=== PATIENT | male | born 1965 | race Two or more races ===

== ENCOUNTER 2024-05-22 14:08 | Inpatient (IN) | payer MEDICAID ==
[~2024-05-22] VITALS: Ht 162.6 cm; Wt 64.0 kg
[2024-05-22 14:08] VITALS: PULSE 132; RESP 17; O2SAT 100
[2024-05-22 14:13] VITALS: O2SAT 98
[2024-05-22] MEDS ORDERED: ACETAMINOPHEN 325MG TABLET PO ONE (14:30)
[2024-05-22] MEDS ORDERED: ACETAMINOPHEN 325MG SUPP PR ONE (14:30)
[2024-05-22 14:42] LABS: HEMATOCRIT. 37.1 % (42.0-52.0); HEMOGLOBIN. 11.7 g/dL (14.0-18.0); MEAN CORPUSCULAR HGB CONC 31.5 g/dL (31.0-37.0); MEAN CORPUSCULAR VOLUME 85.9 fL (80.0-94.0); MEAN PLATELET VOLUME 8.4 fl (7.4-10.4); PLATELET 583 x1000/uL (130-400); RED BLOOD CELL COUNT 4.32 mill/uL (4.7-6.1); RED CELL DISTRIBUTION WIDTH 14.8 % (11.6-14.6); WHITE BLOOD COUNT 12.6 x1000/uL (4.5-11.0)
[2024-05-22] MEDS: ACETAMINOPHEN 650MG SUPP PR NR (14:42)
[2024-05-22] MEDS: VANCOMYCIN 1G PREMIX 200 ML IV ONE (14:43)
[2024-05-22] MEDS: SODIUM CHLORIDE 0.9% 1,000 ML IV ONE ×2 (14:43→16:06)
[2024-05-22 14:45] LABS: DIFFERENTIAL COMMENT 1
[2024-05-22 14:50] LABS: CHLORIDE 101 mEq/L (98-107); POTASSIUM 5.1 mEq/L (3.5-5.1); SODIUM 140 mEq/L (136-145)
[2024-05-22 14:51] LABS: CALCIUM 9.9 mg/dL (8.7-10.4); CARBON DIOXIDE 32 mEq/L (21-32)
[2024-05-22] MEDS: PIPERACILLIN/TAZO 3.375G/50ML 50 ML IV ONE (14:53)
[2024-05-22 14:56] LABS: CREATININE 0.7 mg/dL (0.6-1.3); GLUCOSE 254 mg/dL (70-105); UREA NITROGEN BLOOD 39 mg/dL (9-23)
[2024-05-22 15:28] LABS: PLATELET ESTIMATE INCREASED
[2024-05-22 15:31] LABS: LACTIC ACID 3.8 mmol/L (0.4-2.0)
[2024-05-22 15:48] LABS: CLARITY URINE CLEAR (CLEAR); COLOR URINE DARK YELLOW (YELLOW); GLUCOSE URINE NEGATIVE (NEGATIVE); KETONES URINE TRACE (NEGATIVE); LEUKOCYTE ESTERASE URINE NEGATIVE (NEGATIVE); NITRITE URINE NEGATIVE (NEGATIVE); OCCULT BLOOD URINE NEGATIVE (NEGATIVE); PROTEIN URINE 1+ (NEGATIVE); SPECIFIC GRAVITY URINE 1.035 (1.005-1.030)
[2024-05-22 16:04] LABS: BACTERIA URINE 1+; RBC URINE NONE SEEN /hpf (0-2); SQUAMOUS EPITHELIAL CELL URINE RARE /lpf (RARE/1+); WBC URINE 0-2 /hpf (0-2)
[2024-05-22 16:28] LABS: PROTHROMBIN TIME 11.3 sec (9.6-11.0)
[2024-05-22 17:53] VITALS: PULSE 93; RESP 14; O2SAT 100
[2024-05-22 19:45] VITALS: PULSE 98; RESP 15; O2SAT 99
[2024-05-22] MEDS: NOREPINEPHRINE 8MG/250ML PMX 250 ML IV ONE (20:12)
[2024-05-23] VITALS (63 sets, daily range): BP systolic 91–122; BP diastolic 47–81; PULSE 79–107; RESP 12–21; TEMP 36.83628–38.0304; O2SAT 97–100
[2024-05-23] MEDS: IOHEXOL-300 100 ML BOTTLE ONE (00:31)
[2024-05-23] MEDS ORDERED: NOREPINEPHRINE 8MG/250ML PMX 250 ML IV ONE (03:00)
[2024-05-23 03:05] LABS: BG BASE EXCESS 4.8 mmol/L (-2.0-2.0); BG CARBOXYHEMOGLOBIN 0.4 % (0.5-1.5); BG FRACTION INSPIRED OXYGEN 40; BG METHEMOGLOBIN 0.2 % (0.0-1.5); BG OXYHEMOGLOBIN 98.4 % (94.0-97.0); BG PCO2 35.6 mmHg (35.0-45.0); BG PH 7.514 (7.350-7.450); BG PO2 144.6 mmHg (75.0-100.0); BG SAMPLE SITE RIGHT RADIAL; BG TOTAL HEMOGLOBIN 8.2 g/dL (12.0-18.0); BG VENT MODE VENT - AC
[2024-05-23] MEDS ORDERED: LEVETIRACETAM (05:41)
[2024-05-23] MEDS ORDERED: CLON0.1T PO (05:41)
[2024-05-23] MEDS ORDERED: AMLO10TA80 PO (05:41)
[2024-05-23] MEDS ORDERED: HYDR-2988 PO (05:41)
[2024-05-23] MEDS ORDERED: BUDE0.5A3 NEB (05:41)
[2024-05-23] MEDS ORDERED: KETO15CR2 TP (05:41)
[2024-05-23] MEDS ORDERED: ALBU2.5V13 NEB (05:41)
[2024-05-23] MEDS ORDERED: CHLO473M11 (05:41)
[2024-05-23] MEDS ORDERED: METO25TA6 PO (05:41)
[2024-05-23] MEDS: NOREPINEPHRINE 8MG/250ML PMX 250 ML IV PRN (05:43)
[2024-05-23 07:05] LABS: HEMATOCRIT 23.5 % (42.0-52.0); HEMOGLOBIN 7.5 g/dL (14.0-18.0); MEAN CORPUSCULAR HEMOGLOBIN 27.1 pg (28.0-32.0); MEAN CORPUSCULAR VOLUME 84.7 fL (80.0-94.0); PLATELET 585 x1000/uL (130-400); RED BLOOD CELL COUNT 2.77 mill/uL (4.7-6.1); RED CELL DISTRIBUTION WIDTH 14.7 % (11.6-14.6); WHITE BLOOD COUNT 7.8 x1000/uL (4.5-11.0)
[2024-05-23 07:15] LABS: CARBON DIOXIDE 31 mEq/L (21-32); CHLORIDE 108 mEq/L (98-107); POTASSIUM 3.3 mEq/L (3.5-5.1); SODIUM 146 mEq/L (136-145)
[2024-05-23 07:21] LABS: GLUCOSE 253 mg/dL (70-105); UREA NITROGEN BLOOD 26 mg/dL (9-23)
[2024-05-23] MEDS ORDERED: IPRATROPIUM/ALBUTEROL 0.5-3(2.5)MG/3ML NEB HHN PRN ×2 (07:45→10:00)
[2024-05-23] MEDS: BLOOD SUGAR DIAGNOSTIC STRIP TEST SCH (07:47)
[2024-05-23] MEDS ORDERED: VANCOMYCIN 1GM/200ML PMX (BAXTER) IV SCH (08:00)
[2024-05-23] MEDS: KCL 20MEQ/100ML PREMIX 100 ML IV SCH (08:13)
[2024-05-23] MEDS: ENOXAPARIN 40MG/0.4ML SYR SUBCUT SCH (08:13)
[2024-05-23] MEDS: PANTOPRAZOLE SODIUM 40 MG/VIAL IV SCH ×2 (08:13→20:36)
[2024-05-23] MEDS: DEXT 5%/0.45% NACL 1000ML 1,000 ML IV SCH (08:14)
[2024-05-23] MEDS: INSULIN LISPRO 100 UNITS/ML SUBCUT SCH (08:20)
[2024-05-23] MEDS: PIPERACILLIN/TAZO 3.375G/50ML 50 ML IV SCH (08:20)
[2024-05-23 08:22] LABS: CREATININE 0.4 mg/dL (0.6-1.3)
[2024-05-23] MEDS: LEVETIRACETAM 500MG PREMIX 100 ML IV SCH (08:42)
[2024-05-23 08:49] LABS: BG BASE EXCESS 5.3 mmol/L (-2.0-2.0); BG CARBOXYHEMOGLOBIN 0.6 % (0.5-1.5); BG DEOXYHEMOGLOBIN 1.2 % (0.0-5.0); BG FRACTION INSPIRED OXYGEN 35; BG HCO3 ACT 29.1 mmol/L (22.0-26.0); BG OXYGEN SATURATION 98.8 % (92.0-98.5); BG OXYHEMOGLOBIN 98.2 % (94.0-97.0); BG PCO2 39.2 mmHg (35.0-45.0); BG PH 7.488 (7.350-7.450); BG PO2 124.1 mmHg (75.0-100.0); BG SAMPLE SITE RIGHT RADIAL; BG VENT MODE VENT - AC
[2024-05-23] MEDS ORDERED: LEVETIRACETAM 1000MG PREMIX 100 ML IV SCH (09:00)
[2024-05-23] MEDS ORDERED: LEVETIRACETAM 1,000MG in NACL 100ML PREMIX IV SCH (09:00)
[2024-05-23] MEDS ORDERED: ONDANSETRON HCL 4MG/2ML INJ IV PRN (10:00)
[2024-05-23] MEDS ORDERED: DOCUSATE SODIUM 100MG CAPSULE PO PRN (10:00)
[2024-05-23] MEDS ORDERED: MORPHINE SULFATE 2 MG/ML INJ (NOT FOR IM USE) IV PRN (10:00)
[2024-05-23] MEDS ORDERED: NALOXONE HCL 0.4MG/ML VIAL IV PRN (10:30)
[2024-05-23] MEDS: VANCOMYCIN 1GM/200ML PMX (BAXTER) IV SCH (10:40)
[2024-05-23] MEDS: DEXTROSE 5% WATER 1,000 ML IV SCH (10:40)
[2024-05-23 11:54] LABS: *AMPHETAMINES SCREEN URINE NEGATIVE (NEGATIVE)
[2024-05-23 11:55] LABS: *BARBITURATES SCREEN URINE NEGATIVE (NEGATIVE); *BENZODIAZEPINES SCREEN URINE NEGATIVE (NEGATIVE); *COCAINE SCREEN URINE NEGATIVE (NEGATIVE); CANNABINOID URINE SCREEN NEGATIVE (NEGATIVE); METHADONE URINE SCREEN NEGATIVE (NEGATIVE); OPIATES URINE SCREEN NEGATIVE (NEGATIVE); PHENCYCLIDINE URINE SCREEN NEGATIVE (NEGATIVE)
[2024-05-23] MEDS: CLINDAMYCIN 600MG PREMIX 50 ML IV SCH (12:03)
[2024-05-23 12:29] LABS: IRON 19 ug/dL (65-175)
[2024-05-23 12:30] LABS: LDL CHOLESTEROL 43 mg/dL (5-100); TRIGLYCERIDE 211 mg/dL (0-150)
[2024-05-23 12:31] LABS: CHOLESTEROL 80 mg/dL (<200); HDL CHOLESTEROL < 20 mg/dL (>55)
[2024-05-23 12:32] LABS: PHOSPHORUS 2.7 mg/dL (2.5-4.9); TOTAL IRON BINDING CAPACITY 471 ug/dl (250-425)
[2024-05-23 12:33] LABS: FERRITIN 663 ng/mL (22-322)
[2024-05-23 12:34] LABS: T4 FREE 0.82 ng/dL (0.89-1.76); THYROID STIMULATING HORMONE 2.17 uIU/mL (0.55-4.78); TRIOIODOTHYRONINE TOTAL 0.37 ng/ml (0.60-1.81)
[2024-05-23 12:35] LABS: FOLIC ACID (FOLATE) SERUM 17.07 ng/mL (>5.38); VITAMIN B12 SERUM 1846 pg/mL (211-911)
[2024-05-24] VITALS (102 sets, daily range): BP systolic 87–153; BP diastolic 36–107; PULSE 61–99; RESP 12–22; TEMP 36.89184–38.50308; O2SAT 100
[2024-05-24 02:00] LABS: HEMOGLOBIN 6.5 g/dL (14.0-18.0)
[2024-05-24 02:01] LABS: HEMATOCRIT 20.6 % (42.0-52.0)
[2024-05-24 06:32] LABS: CALCIUM 8.2 mg/dL (8.7-10.4); CARBON DIOXIDE 26 mEq/L (21-32); CHLORIDE 113 mEq/L (98-107); POTASSIUM 3.2 mEq/L (3.5-5.1); SODIUM 146 mEq/L (136-145)
[2024-05-24 06:37] LABS: CREATININE 0.4 mg/dL (0.6-1.3)
[2024-05-24 06:38] LABS: GLUCOSE 243 mg/dL (70-105); UREA NITROGEN BLOOD 17 mg/dL (9-23)
[2024-05-24 07:44] LABS: BASOPHILS % 0.3 % (0.0-2.0); EOSINOPHILS % 1.3 % (0.0-5.0); LYMPHOCYTES % 19.7 % (20.0-50.0); MEAN CORPUSCULAR HEMOGLOBIN 27.6 pg (28.0-32.0); MEAN CORPUSCULAR HGB CONC 31.3 g/dL (31.0-37.0); MEAN PLATELET VOLUME 8.3 fl (7.4-10.4); MONOCYTES % 8.6 % (2.0-8.0); NEUTROPHILS % 70.1 % (40.0-76.0); PLATELET 487 x1000/uL (130-400); RED BLOOD CELL COUNT 2.73 mill/uL (4.7-6.1)
[2024-05-24 07:51] LABS: MEAN CORPUSCULAR VOLUME 88.5 fL (80.0-94.0)
[2024-05-24 07:52] LABS: HEMOGLOBIN. 7.6 g/dL (14.0-18.0)
[2024-05-24 07:53] LABS: HEMATOCRIT. 24.1 % (42.0-52.0)
[2024-05-24 15:19] LABS: HEMATOCRIT 27.6 % (42.0-52.0); HEMOGLOBIN 8.5 g/dL (14.0-18.0)
[2024-05-24] MEDS ORDERED: NOREPINEPHRINE 8MG/250ML PMX 250 ML IV PRN (18:15)
[2024-05-24] MEDS: ACETAMINOPHEN 650MG SUPP PR PRN (20:16)
[2024-05-24 21:01] LABS: HEMATOCRIT 25.8 % (42.0-52.0); HEMOGLOBIN 8.3 g/dL (14.0-18.0)
[2024-05-24] MEDS ORDERED: HYDROCORTISONE SOD SUCCINATE 100 MG/2 ML VIAL IV SCH (22:00)
[2024-05-25] VITALS (73 sets, daily range): BP systolic 97–136; BP diastolic 53–93; PULSE 64–110; RESP 12–26; TEMP 37.00296–38.3364; O2SAT 98–100
[2024-05-25 03:29] LABS: HEMATOCRIT 24.9 % (42.0-52.0); HEMOGLOBIN 8.1 g/dL (14.0-18.0)
[2024-05-25 06:14] LABS: HEMATOCRIT 23.8 % (42.0-52.0); HEMOGLOBIN 7.7 g/dL (14.0-18.0)
[2024-05-25 13:13] LABS: HEMATOCRIT 25.4 % (42.0-52.0)
[2024-05-25] MEDS: LORAZEPAM 2MG/ML INJ IV PRN (18:54)
[2024-05-25] MEDS: MAGNESIUM 2 G PREMIX 50 ML IV NR (18:54)
[2024-05-25 20:21] LABS: HEMOGLOBIN 8.9 g/dL (14.0-18.0)
[2024-05-25 20:27] LABS: CHLORIDE 107 mEq/L (98-107); POTASSIUM 2.9 mEq/L (3.5-5.1); SODIUM 140 mEq/L (136-145)
[2024-05-25 20:28] LABS: CARBON DIOXIDE 25 mEq/L (21-32)
[2024-05-25 20:29] LABS: CALCIUM 8.1 mg/dL (8.7-10.4)
[2024-05-25 20:33] LABS: CREATININE 0.4 mg/dL (0.6-1.3); GLUCOSE 148 mg/dL (70-105); UREA NITROGEN BLOOD 8 mg/dL (9-23)
[2024-05-25] MEDS: POTASSIUM CHLORIDE 20MEQ/PACKET PO NR (21:16)
[2024-05-26] VITALS (58 sets, daily range): BP systolic 96–151; BP diastolic 57–114; PULSE 78–115; RESP 15–27; TEMP 37.16964–38.3364; O2SAT 91–100
[2024-05-26 05:20] LABS: BASOPHILS % 0.2 % (0.0-2.0); EOSINOPHILS % 1.1 % (0.0-5.0); HEMATOCRIT. 23.5 % (42.0-52.0); HEMOGLOBIN. 7.4 g/dL (14.0-18.0); LYMPHOCYTES % 19.4 % (20.0-50.0); MEAN CORPUSCULAR HEMOGLOBIN 27.5 pg (28.0-32.0); MEAN CORPUSCULAR HGB CONC 31.4 g/dL (31.0-37.0); MEAN CORPUSCULAR VOLUME 87.6 fL (80.0-94.0); MEAN PLATELET VOLUME 7.6 fl (7.4-10.4); MONOCYTES % 6.1 % (2.0-8.0); NEUTROPHILS % 73.2 % (40.0-76.0); PLATELET 582 x1000/uL (130-400); RED BLOOD CELL COUNT 2.69 mill/uL (4.7-6.1); RED CELL DISTRIBUTION WIDTH 15.1 % (11.6-14.6); WHITE BLOOD COUNT 10.1 x1000/uL (4.5-11.0)
[2024-05-26 05:21] LABS: CHLORIDE 107 mEq/L (98-107); POTASSIUM 3.2 mEq/L (3.5-5.1); SODIUM 137 mEq/L (136-145)
[2024-05-26 05:22] LABS: CALCIUM 7.8 mg/dL (8.7-10.4); CARBON DIOXIDE 22 mEq/L (21-32)
[2024-05-26 05:27] LABS: CREATININE 0.3 mg/dL (0.6-1.3); GLUCOSE 160 mg/dL (70-105); UREA NITROGEN BLOOD 7 mg/dL (9-23)
[2024-05-26 05:29] LABS: ALBUMIN 2.5 g/dL (3.2-4.8)
[2024-05-26 06:19] LABS: PREALBUMIN < 5.0 mg/dl (10.0-40.0)
[2024-05-26] MEDS: BLOOD SUGAR DIAGNOSTIC STRIP TEST SCH (12:00)
[2024-05-26] MEDS: INSULIN LISPRO 100 UNITS/ML SUBCUT SCH (12:58)
[2024-05-26] MEDS: POTASSIUM CHLORIDE 20MEQ/PACKET PO NR (13:19)
[2024-05-26] MEDS: ACETAMINOPHEN 650MG/20.3ML UDC PO PRN (18:00)
[2024-05-27] VITALS (61 sets, daily range): BP systolic 95–137; BP diastolic 57–118; PULSE 76–125; RESP 13–26; TEMP 36.83628–38.55864; O2SAT 97–100
[2024-05-27 06:00] LABS: CHLORIDE 111 mEq/L (98-107); POTASSIUM 3.5 mEq/L (3.5-5.1); SODIUM 143 mEq/L (136-145)
[2024-05-27 06:01] LABS: CALCIUM 7.9 mg/dL (8.7-10.4); CARBON DIOXIDE 25 mEq/L (21-32)
[2024-05-27 06:04] LABS: BASOPHILS % 0.2 % (0.0-2.0); EOSINOPHILS % 0.8 % (0.0-5.0); HEMATOCRIT. 24.9 % (42.0-52.0); HEMOGLOBIN. 7.9 g/dL (14.0-18.0); LYMPHOCYTES % 21.4 % (20.0-50.0); MEAN CORPUSCULAR HEMOGLOBIN 27.6 pg (28.0-32.0); MEAN CORPUSCULAR HGB CONC 31.8 g/dL (31.0-37.0); MEAN CORPUSCULAR VOLUME 86.9 fL (80.0-94.0); MEAN PLATELET VOLUME 7.7 fl (7.4-10.4); MONOCYTES % 7.2 % (2.0-8.0); NEUTROPHILS % 70.4 % (40.0-76.0); PLATELET 646 x1000/uL (130-400); RED BLOOD CELL COUNT 2.86 mill/uL (4.7-6.1); RED CELL DISTRIBUTION WIDTH 15.6 % (11.6-14.6); WHITE BLOOD COUNT 8.9 x1000/uL (4.5-11.0)
[2024-05-27 06:06] LABS: CREATININE 0.3 mg/dL (0.6-1.3); GLUCOSE 207 mg/dL (70-105); UREA NITROGEN BLOOD 5 mg/dL (9-23)
[2024-05-27 06:08] LABS: PHOSPHORUS 3.3 mg/dL (2.5-4.9)
[2024-05-28] VITALS (24 sets, daily range): BP systolic 104–140; BP diastolic 54–96; PULSE 89–125; RESP 13–23; TEMP 36.6696–38.28084; O2SAT 100
[2024-05-29] VITALS (20 sets, daily range): BP systolic 104–148; BP diastolic 60–108; PULSE 85–129; RESP 11–21; TEMP 36.78072–38.50308; O2SAT 96–100
[2024-05-29 09:18] LABS: BASOPHILS % 0.2 % (0.0-2.0); EOSINOPHILS % 1.3 % (0.0-5.0); HEMATOCRIT. 23.6 % (42.0-52.0); HEMOGLOBIN. 7.5 g/dL (14.0-18.0); LYMPHOCYTES % 19.1 % (20.0-50.0); MEAN CORPUSCULAR HEMOGLOBIN 27.5 pg (28.0-32.0); MEAN CORPUSCULAR HGB CONC 31.9 g/dL (31.0-37.0); MEAN CORPUSCULAR VOLUME 86.3 fL (80.0-94.0); MEAN PLATELET VOLUME 7.7 fl (7.4-10.4); MONOCYTES % 9.3 % (2.0-8.0); NEUTROPHILS % 70.1 % (40.0-76.0); PLATELET 747 x1000/uL (130-400); RED BLOOD CELL COUNT 2.74 mill/uL (4.7-6.1); RED CELL DISTRIBUTION WIDTH 15.3 % (11.6-14.6); WHITE BLOOD COUNT 7.8 x1000/uL (4.5-11.0)
[2024-05-29 09:22] LABS: CARBON DIOXIDE 26 mEq/L (21-32); CHLORIDE 105 mEq/L (98-107); SODIUM 139 mEq/L (136-145)
[2024-05-29 09:24] LABS: CALCIUM 8.4 mg/dL (8.7-10.4)
[2024-05-29 09:28] LABS: GLUCOSE 178 mg/dL (70-105); UREA NITROGEN BLOOD 6 mg/dL (9-23)
[2024-05-29 09:51] LABS: CREATININE 0.4 mg/dL (0.6-1.3)
[2024-05-29] MEDS: KCL 20MEQ/100ML PREMIX 100 ML IV SCH (13:49)
[2024-05-30] VITALS (22 sets, daily range): BP systolic 114–137; BP diastolic 68–89; PULSE 88–123; RESP 11–22; TEMP 36.44736–37.72524; O2SAT 98–100
[2024-05-31] VITALS (24 sets, daily range): BP systolic 110–148; BP diastolic 63–82; PULSE 60–104; RESP 11–24; TEMP 36.72516–38.3364; O2SAT 98–100
[2024-05-31 07:28] LABS: BASOPHILS % 0.3 % (0.0-2.0); EOSINOPHILS % 1.7 % (0.0-5.0); HEMATOCRIT. 23.6 % (42.0-52.0); HEMOGLOBIN. 7.7 g/dL (14.0-18.0); LYMPHOCYTES % 20.5 % (20.0-50.0); MEAN CORPUSCULAR HEMOGLOBIN 28.3 pg (28.0-32.0); MEAN CORPUSCULAR HGB CONC 32.6 g/dL (31.0-37.0); MEAN CORPUSCULAR VOLUME 86.6 fL (80.0-94.0); MEAN PLATELET VOLUME 7.3 fl (7.4-10.4); MONOCYTES % 11.4 % (2.0-8.0); NEUTROPHILS % 66.1 % (40.0-76.0); PLATELET 796 x1000/uL (130-400); RED BLOOD CELL COUNT 2.72 mill/uL (4.7-6.1); RED CELL DISTRIBUTION WIDTH 15.1 % (11.6-14.6); WHITE BLOOD COUNT 7.3 x1000/uL (4.5-11.0)
[2024-05-31 07:32] LABS: CHLORIDE 106 mEq/L (98-107); SODIUM 139 mEq/L (136-145)
[2024-05-31 07:33] LABS: CALCIUM 8.5 mg/dL (8.7-10.4); CARBON DIOXIDE 27 mEq/L (21-32)
[2024-05-31 07:38] LABS: CREATININE 0.4 mg/dL (0.6-1.3); GLUCOSE 137 mg/dL (70-105)
[2024-05-31 08:06] LABS: POTASSIUM 2.8 mEq/L (3.5-5.1); UREA NITROGEN BLOOD < 5 mg/dL (9-23)
[2024-05-31] MEDS: KCL 20MEQ/100ML PREMIX 100 ML IV SCH (10:27)
[2024-06-01] VITALS (24 sets, daily range): BP systolic 101–151; BP diastolic 60–79; PULSE 78–106; RESP 12–22; TEMP 36.6696–37.66968; O2SAT 98–100
[2024-06-01 07:19] LABS: CALCIUM 8.7 mg/dL (8.7-10.4); CARBON DIOXIDE 24 mEq/L (21-32); CHLORIDE 103 mEq/L (98-107); POTASSIUM 4.3 mEq/L (3.5-5.1); SODIUM 136 mEq/L (136-145)
[2024-06-01 07:25] LABS: CREATININE 0.5 mg/dL (0.6-1.3); GLUCOSE 130 mg/dL (70-105)
[2024-06-01 07:29] LABS: UREA NITROGEN BLOOD < 5 mg/dL (9-23)
[2024-06-02] VITALS (24 sets, daily range): BP systolic 115–133; BP diastolic 72–101; PULSE 79–118; RESP 12–24; TEMP 36.50292–37.66968; O2SAT 97–100
[2024-06-02 06:17] LABS: CHLORIDE 106 mEq/L (98-107); SODIUM 139 mEq/L (136-145)
[2024-06-02 06:18] LABS: CARBON DIOXIDE 25 mEq/L (21-32)
[2024-06-02 06:19] LABS: CALCIUM 8.8 mg/dL (8.7-10.4)
[2024-06-02 06:23] LABS: CREATININE 0.4 mg/dL (0.6-1.3); GLUCOSE 131 mg/dL (70-105)
[2024-06-02 06:50] LABS: BASOPHILS % 0.4 % (0.0-2.0); EOSINOPHILS % 1.2 % (0.0-5.0); HEMATOCRIT. 24.6 % (42.0-52.0); HEMOGLOBIN. 7.8 g/dL (14.0-18.0); LYMPHOCYTES % 27.2 % (20.0-50.0); MEAN CORPUSCULAR HEMOGLOBIN 27.1 pg (28.0-32.0); MEAN CORPUSCULAR HGB CONC 31.6 g/dL (31.0-37.0); MEAN PLATELET VOLUME 7.2 fl (7.4-10.4); MONOCYTES % 9.2 % (2.0-8.0); PLATELET 854 x1000/uL (130-400); RED BLOOD CELL COUNT 2.87 mill/uL (4.7-6.1); RED CELL DISTRIBUTION WIDTH 15.1 % (11.6-14.6); WHITE BLOOD COUNT 7.4 x1000/uL (4.5-11.0)
[2024-06-02 08:03] LABS: POTASSIUM 2.7 mEq/L (3.5-5.1); UREA NITROGEN BLOOD < 5 mg/dL (9-23)
[2024-06-02] MEDS: KCL 20MEQ/100ML PREMIX 100 ML IV NR (12:27)
[2024-06-02] MEDS: POTASSIUM CHLORIDE 20MEQ/PACKET GT NR (12:39)
[2024-06-02 15:01] LABS: POTASSIUM 3.3 mEq/L (3.5-5.1)
[2024-06-02 15:09] LABS: PHOSPHORUS 3.4 mg/dL (2.5-4.9)
[2024-06-02] MEDS: KCL 20MEQ/100ML PREMIX 100 ML IV SCH (15:34)
[2024-06-03] VITALS (22 sets, daily range): BP systolic 111–135; BP diastolic 70–90; PULSE 80–109; RESP 12–19; TEMP 36.16956–37.05852; O2SAT 95–100
[2024-06-03 05:30] LABS: BASOPHILS % 0.5 % (0.0-2.0); EOSINOPHILS % 1.2 % (0.0-5.0); HEMATOCRIT. 22.8 % (42.0-52.0); HEMOGLOBIN. 7.2 g/dL (14.0-18.0); LYMPHOCYTES % 35.6 % (20.0-50.0); MEAN CORPUSCULAR HEMOGLOBIN 27.4 pg (28.0-32.0); MEAN CORPUSCULAR HGB CONC 31.5 g/dL (31.0-37.0); MONOCYTES % 11.2 % (2.0-8.0); NEUTROPHILS % 51.5 % (40.0-76.0); PLATELET 853 x1000/uL (130-400); RED BLOOD CELL COUNT 2.62 mill/uL (4.7-6.1); WHITE BLOOD COUNT 7.6 x1000/uL (4.5-11.0)
[2024-06-03 05:34] LABS: CALCIUM 8.9 mg/dL (8.7-10.4); CARBON DIOXIDE 24 mEq/L (21-32); CHLORIDE 107 mEq/L (98-107); POTASSIUM 3.1 mEq/L (3.5-5.1); SODIUM 138 mEq/L (136-145)
[2024-06-03 05:39] LABS: CREATININE 0.4 mg/dL (0.6-1.3)
[2024-06-03 05:40] LABS: GLUCOSE 132 mg/dL (70-105)
[2024-06-03 05:41] LABS: ALANINE AMINOTRANSFERASE < 7 IU/L (10-49); ALBUMIN 2.7 g/dL (3.2-4.8)
[2024-06-03 05:42] LABS: PHOSPHORUS 3.1 mg/dL (2.5-4.9)
[2024-06-03 05:44] LABS: ASPARTATE AMINOTRANSFERASE < 8 IU/L (<34); BILIRUBIN DIRECT < 0.1 mg/dL (<=3.0); BILIRUBIN TOTAL 0.2 mg/dL (0.1-1.0); PROTEIN TOTAL 6.5 g/dL (6.0-8.3); UREA NITROGEN BLOOD < 5 mg/dL (9-23)
[2024-06-03 05:51] LABS: INR 1.3; PROTHROMBIN TIME 13.8 sec (9.6-11.0)
[2024-06-03] MEDS: MAGNESIUM 2 G PREMIX 50 ML IV NR (13:25)
[2024-06-03] MEDS: KCL 20MEQ/100ML PREMIX 100 ML IV SCH (13:26)
[2024-06-04] VITALS (25 sets, daily range): BP systolic 104–142; BP diastolic 66–85; PULSE 75–113; RESP 12–21; TEMP 36.3918–38.3364; O2SAT 98–100
[2024-06-04 06:04] LABS: BASOPHILS % 0.4 % (0.0-2.0); EOSINOPHILS % 0.7 % (0.0-5.0); HEMOGLOBIN. 8.3 g/dL (14.0-18.0); LYMPHOCYTES % 29.6 % (20.0-50.0); MEAN CORPUSCULAR HEMOGLOBIN 27.6 pg (28.0-32.0); MEAN CORPUSCULAR VOLUME 86.3 fL (80.0-94.0); MEAN PLATELET VOLUME 6.8 fl (7.4-10.4); MONOCYTES % 7.5 % (2.0-8.0); NEUTROPHILS % 61.8 % (40.0-76.0); PLATELET 869 x1000/uL (130-400); RED BLOOD CELL COUNT 3.01 mill/uL (4.7-6.1); WHITE BLOOD COUNT 8.4 x1000/uL (4.5-11.0)
[2024-06-04 06:08] LABS: INR 1.3; PROTHROMBIN TIME 14.6 sec (9.6-11.0)
[2024-06-04 06:14] LABS: CHLORIDE 104 mEq/L (98-107); POTASSIUM 3.3 mEq/L (3.5-5.1); SODIUM 137 mEq/L (136-145)
[2024-06-04 06:15] LABS: CARBON DIOXIDE 25 mEq/L (21-32)
[2024-06-04 06:20] LABS: CREATININE 0.5 mg/dL (0.6-1.3); GLUCOSE 135 mg/dL (70-105)
[2024-06-04 06:22] LABS: ALANINE AMINOTRANSFERASE < 7 IU/L (10-49); ASPARTATE AMINOTRANSFERASE 9 IU/L (<34); BILIRUBIN DIRECT 0.1 mg/dL (<=3.0); PHOSPHORUS 3.3 mg/dL (2.5-4.9)
[2024-06-04 06:23] LABS: BILIRUBIN TOTAL 0.3 mg/dL (0.1-1.0); PROTEIN TOTAL 7.2 g/dL (6.0-8.3)
[2024-06-04 06:40] LABS: UREA NITROGEN BLOOD < 5 mg/dL (9-23)
[2024-06-05] VITALS (25 sets, daily range): BP systolic 115–152; BP diastolic 66–119; PULSE 74–112; RESP 12–31; TEMP 36.114–37.55856; O2SAT 92–100
[2024-06-05 07:50] LABS: CALCIUM 8.6 mg/dL (8.7-10.4); CARBON DIOXIDE 24 mEq/L (21-32); CHLORIDE 107 mEq/L (98-107); SODIUM 138 mEq/L (136-145)
[2024-06-05 07:56] LABS: CREATININE 0.4 mg/dL (0.6-1.3); GLUCOSE 236 mg/dL (70-105)
[2024-06-05 07:57] LABS: BASOPHILS % 0.4 % (0.0-2.0); HEMATOCRIT. 23.5 % (42.0-52.0); HEMOGLOBIN. 7.5 g/dL (14.0-18.0); LYMPHOCYTES % 26.6 % (20.0-50.0); MEAN CORPUSCULAR HEMOGLOBIN 27.4 pg (28.0-32.0); MEAN CORPUSCULAR HGB CONC 31.8 g/dL (31.0-37.0); MEAN CORPUSCULAR VOLUME 86.1 fL (80.0-94.0); MEAN PLATELET VOLUME 6.9 fl (7.4-10.4); MONOCYTES % 8.3 % (2.0-8.0); NEUTROPHILS % 63.7 % (40.0-76.0); PLATELET 769 x1000/uL (130-400); RED BLOOD CELL COUNT 2.72 mill/uL (4.7-6.1); WHITE BLOOD COUNT 8.8 x1000/uL (4.5-11.0)
[2024-06-05 08:46] LABS: UREA NITROGEN BLOOD < 5 mg/dL (9-23)
[2024-06-05 08:48] LABS: POTASSIUM 2.8 mEq/L (3.5-5.1)
[2024-06-05] MEDS: KCL 20MEQ/100ML PREMIX 100 ML IV SCH (12:00)
[2024-06-06] VITALS (22 sets, daily range): BP systolic 104–166; BP diastolic 75–124; PULSE 83–133; RESP 12–25; TEMP 36.6696–38.11416; O2SAT 92–100
[2024-06-06 06:10] LABS: CALCIUM 8.9 mg/dL (8.7-10.4); CHLORIDE 109 mEq/L (98-107); SODIUM 141 mEq/L (136-145)
[2024-06-06 06:11] LABS: CARBON DIOXIDE 25 mEq/L (21-32)
[2024-06-06 06:16] LABS: CREATININE 0.4 mg/dL (0.6-1.3); GLUCOSE 115 mg/dL (70-105)
[2024-06-06 06:22] LABS: BASOPHILS % 0.5 % (0.0-2.0); HEMATOCRIT. 25.3 % (42.0-52.0); LYMPHOCYTES % 31.4 % (20.0-50.0); MEAN CORPUSCULAR HEMOGLOBIN 27.3 pg (28.0-32.0); MEAN CORPUSCULAR HGB CONC 31.6 g/dL (31.0-37.0); MEAN CORPUSCULAR VOLUME 86.6 fL (80.0-94.0); MEAN PLATELET VOLUME 6.8 fl (7.4-10.4); MONOCYTES % 10.1 % (2.0-8.0); PLATELET 705 x1000/uL (130-400); RED BLOOD CELL COUNT 2.93 mill/uL (4.7-6.1); RED CELL DISTRIBUTION WIDTH 15.1 % (11.6-14.6); WHITE BLOOD COUNT 6.1 x1000/uL (4.5-11.0)
[2024-06-06 06:39] LABS: POTASSIUM 2.8 mEq/L (3.5-5.1); UREA NITROGEN BLOOD < 5 mg/dL (9-23)
[2024-06-06 10:16] LABS: BG BASE EXCESS 0.3 mmol/L (-2.0-2.0); BG CARBOXYHEMOGLOBIN 0.3 % (0.5-1.5); BG DEOXYHEMOGLOBIN 5.7 % (0.0-5.0); BG FRACTION INSPIRED OXYGEN 35; BG HCO3 ACT 22.8 mmol/L (22.0-26.0); BG METHEMOGLOBIN 0.3 % (0.0-1.5); BG OXYGEN SATURATION 94.3 % (92.0-98.5); BG OXYHEMOGLOBIN 93.7 % (94.0-97.0); BG PCO2 29.2 mmHg (35.0-45.0); BG PH 7.511 (7.350-7.450); BG PO2 67.9 mmHg (75.0-100.0); BG SAMPLE SITE RIGHT RADIAL; BG TOTAL HEMOGLOBIN 9.4 g/dL (12.0-18.0); BG VENT MODE VENT - AC
[2024-06-06] MEDS: KCL 20MEQ/100ML PREMIX 100 ML IV SCH ×2 (11:36→16:07)
[2024-06-06] MEDS: IPRATROPIUM/ALBUTEROL 0.5-3(2.5)MG/3ML NEB HHN SCH (20:47)
[2024-06-07] VITALS (28 sets, daily range): BP systolic 97–156; BP diastolic 63–112; PULSE 79–129; RESP 13–43; TEMP 34.66944–37.7808; O2SAT 94–100
[2024-06-07 08:16] LABS: BASOPHILS % 0.4 % (0.0-2.0); EOSINOPHILS % 1.4 % (0.0-5.0); HEMOGLOBIN. 8.4 g/dL (14.0-18.0); LYMPHOCYTES % 26.2 % (20.0-50.0); MEAN CORPUSCULAR HEMOGLOBIN 26.9 pg (28.0-32.0); MEAN CORPUSCULAR HGB CONC 31.2 g/dL (31.0-37.0); MEAN CORPUSCULAR VOLUME 86.3 fL (80.0-94.0); MEAN PLATELET VOLUME 6.8 fl (7.4-10.4); MONOCYTES % 10.8 % (2.0-8.0); NEUTROPHILS % 61.2 % (40.0-76.0); PLATELET 705 x1000/uL (130-400); RED BLOOD CELL COUNT 3.13 mill/uL (4.7-6.1); RED CELL DISTRIBUTION WIDTH 15.1 % (11.6-14.6); WHITE BLOOD COUNT 8.6 x1000/uL (4.5-11.0)
[2024-06-07 08:25] LABS: INR 1.4; PROTHROMBIN TIME 15.6 sec (9.6-11.0)
[2024-06-07 08:26] LABS: CHLORIDE 107 mEq/L (98-107); POTASSIUM 3.5 mEq/L (3.5-5.1); SODIUM 138 mEq/L (136-145)
[2024-06-07 08:28] LABS: CARBON DIOXIDE 25 mEq/L (21-32)
[2024-06-07 08:33] LABS: CREATININE 0.4 mg/dL (0.6-1.3); GLUCOSE 111 mg/dL (70-105)
[2024-06-07 08:35] LABS: ALANINE AMINOTRANSFERASE < 7 IU/L (10-49); ALBUMIN 2.8 g/dL (3.2-4.8); PHOSPHORUS 3.2 mg/dL (2.5-4.9)
[2024-06-07 08:36] LABS: BILIRUBIN TOTAL 0.2 mg/dL (0.1-1.0); PROTEIN TOTAL 6.8 g/dL (6.0-8.3)
[2024-06-07 09:02] LABS: UREA NITROGEN BLOOD < 5 mg/dL (9-23)
[2024-06-07 09:03] LABS: ASPARTATE AMINOTRANSFERASE < 8 IU/L (<34); BILIRUBIN DIRECT < 0.1 mg/dL (<=3.0)
[2024-06-07] MEDS: MAGNESIUM 2 G PREMIX 50 ML IV NR (12:27)
[2024-06-08] VITALS (23 sets, daily range): BP systolic 111–189; BP diastolic 67–144; PULSE 80–117; RESP 12–21; TEMP 36.44736–37.44744; O2SAT 97–100
[2024-06-08 05:51] LABS: BASOPHILS % 0.6 % (0.0-2.0); EOSINOPHILS % 1.5 % (0.0-5.0); HEMATOCRIT. 23.1 % (42.0-52.0); HEMOGLOBIN. 7.4 g/dL (14.0-18.0); MEAN CORPUSCULAR HEMOGLOBIN 27.2 pg (28.0-32.0); MEAN CORPUSCULAR HGB CONC 32.1 g/dL (31.0-37.0); MEAN CORPUSCULAR VOLUME 84.8 fL (80.0-94.0); MEAN PLATELET VOLUME 6.8 fl (7.4-10.4); MONOCYTES % 9.6 % (2.0-8.0); NEUTROPHILS % 66.3 % (40.0-76.0); PLATELET 673 x1000/uL (130-400); RED BLOOD CELL COUNT 2.72 mill/uL (4.7-6.1); RED CELL DISTRIBUTION WIDTH 15.1 % (11.6-14.6)
[2024-06-08 06:16] LABS: CHLORIDE 106 mEq/L (98-107); SODIUM 137 mEq/L (136-145)
[2024-06-08 06:17] LABS: CALCIUM 8.5 mg/dL (8.7-10.4); CARBON DIOXIDE 25 mEq/L (21-32)
[2024-06-08 06:22] LABS: CREATININE 0.4 mg/dL (0.6-1.3); GLUCOSE 165 mg/dL (70-105)
[2024-06-08 06:32] LABS: UREA NITROGEN BLOOD < 5 mg/dL (9-23)
[2024-06-08 06:34] LABS: POTASSIUM 2.7 mEq/L (3.5-5.1)
[2024-06-08] MEDS ORDERED: POTASSIUM CHLORIDE 40 MEQ in DEXT 5% WATER 230 ML IV ONE (06:45)
[2024-06-08] MEDS: KCL 20MEQ/100ML X 2 FOR TOTAL KCL 40MEQ/200ML IV SCH (09:05)
[2024-06-08] MEDS: CARVEDILOL 6.25 MG TABLET NG SCH (09:39)
[2024-06-09] VITALS (24 sets, daily range): BP systolic 103–189; BP diastolic 68–170; PULSE 79–117; RESP 12–25; TEMP 36.50292–37.11408; O2SAT 94–100
[2024-06-09] MEDS: HYDRALAZINE 20MG/ML VIAL IV PRN (02:08)
[2024-06-09 06:15] LABS: CARBON DIOXIDE 25 mEq/L (21-32); CHLORIDE 105 mEq/L (98-107); POTASSIUM 3.1 mEq/L (3.5-5.1); SODIUM 136 mEq/L (136-145)
[2024-06-09 06:16] LABS: CALCIUM 8.8 mg/dL (8.7-10.4)
[2024-06-09 06:21] LABS: BASOPHILS % 0.4 % (0.0-2.0); CREATININE 0.3 mg/dL (0.6-1.3); EOSINOPHILS % 1.4 % (0.0-5.0); GLUCOSE 150 mg/dL (70-105); HEMATOCRIT. 24.5 % (42.0-52.0); HEMOGLOBIN. 7.7 g/dL (14.0-18.0); LYMPHOCYTES % 28.7 % (20.0-50.0); MEAN CORPUSCULAR HEMOGLOBIN 27.2 pg (28.0-32.0); MEAN CORPUSCULAR HGB CONC 31.4 g/dL (31.0-37.0); MEAN CORPUSCULAR VOLUME 86.5 fL (80.0-94.0); MONOCYTES % 10.3 % (2.0-8.0); NEUTROPHILS % 59.2 % (40.0-76.0); PLATELET 681 x1000/uL (130-400); RED BLOOD CELL COUNT 2.83 mill/uL (4.7-6.1); RED CELL DISTRIBUTION WIDTH 15.2 % (11.6-14.6); WHITE BLOOD COUNT 8.2 x1000/uL (4.5-11.0)
[2024-06-09 06:34] LABS: UREA NITROGEN BLOOD < 5 mg/dL (9-23)
[2024-06-09] MEDS: KCL 20MEQ/100ML PREMIX 100 ML IV SCH (08:06)
[2024-06-10] VITALS (32 sets, daily range): BP systolic 97–169; BP diastolic 55–134; PULSE 73–125; RESP 12–26; TEMP 36.72516–37.05852; O2SAT 97–100
[2024-06-10 06:28] LABS: CARBON DIOXIDE 26 mEq/L (21-32); CHLORIDE 104 mEq/L (98-107); POTASSIUM 3.2 mEq/L (3.5-5.1); SODIUM 139 mEq/L (136-145)
[2024-06-10 06:30] LABS: CALCIUM 9.4 mg/dL (8.7-10.4)
[2024-06-10 06:34] LABS: GLUCOSE 170 mg/dL (70-105)
[2024-06-10 06:36] LABS: PHOSPHORUS 3.6 mg/dL (2.5-4.9)
[2024-06-10 06:48] LABS: BASOPHILS % 0.4 % (0.0-2.0); HEMATOCRIT. 26.6 % (42.0-52.0); HEMOGLOBIN. 8.4 g/dL (14.0-18.0); LYMPHOCYTES % 26.2 % (20.0-50.0); MEAN CORPUSCULAR HEMOGLOBIN 27.1 pg (28.0-32.0); MEAN CORPUSCULAR HGB CONC 31.5 g/dL (31.0-37.0); MEAN CORPUSCULAR VOLUME 86.1 fL (80.0-94.0); MEAN PLATELET VOLUME 7.2 fl (7.4-10.4); MONOCYTES % 10.8 % (2.0-8.0); NEUTROPHILS % 61.6 % (40.0-76.0); PLATELET 617 x1000/uL (130-400); RED BLOOD CELL COUNT 3.09 mill/uL (4.7-6.1); RED CELL DISTRIBUTION WIDTH 15.3 % (11.6-14.6); WHITE BLOOD COUNT 6.8 x1000/uL (4.5-11.0)
[2024-06-10 07:32] LABS: CREATININE 0.4 mg/dL (0.6-1.3); UREA NITROGEN BLOOD < 5 mg/dL (9-23)
[2024-06-10] MEDS: KCL 20MEQ/100ML PREMIX 100 ML IV SCH (14:50)
[2024-06-11] VITALS (24 sets, daily range): BP systolic 103–146; BP diastolic 65–130; PULSE 67–97; RESP 12–18; TEMP 36.16956–36.83628; O2SAT 99–100
[2024-06-11 06:18] LABS: BASOPHILS % 0.5 % (0.0-2.0); HEMATOCRIT. 23.2 % (42.0-52.0); HEMOGLOBIN. 7.6 g/dL (14.0-18.0); LYMPHOCYTES % 34.9 % (20.0-50.0); MEAN CORPUSCULAR HEMOGLOBIN 27.9 pg (28.0-32.0); MEAN CORPUSCULAR HGB CONC 32.7 g/dL (31.0-37.0); MEAN CORPUSCULAR VOLUME 85.1 fL (80.0-94.0); MEAN PLATELET VOLUME 6.9 fl (7.4-10.4); MONOCYTES % 11.6 % (2.0-8.0); PLATELET 578 x1000/uL (130-400); RED BLOOD CELL COUNT 2.73 mill/uL (4.7-6.1); RED CELL DISTRIBUTION WIDTH 15.1 % (11.6-14.6); WHITE BLOOD COUNT 5.6 x1000/uL (4.5-11.0)
[2024-06-11 06:18] LABS: CARBON DIOXIDE 26 mEq/L (21-32); CHLORIDE 106 mEq/L (98-107); POTASSIUM 3.6 mEq/L (3.5-5.1); SODIUM 137 mEq/L (136-145)
[2024-06-11 06:20] LABS: CALCIUM 9.3 mg/dL (8.7-10.4)
[2024-06-11 06:24] LABS: CREATININE 0.4 mg/dL (0.6-1.3); GLUCOSE 137 mg/dL (70-105)
[2024-06-11 06:26] LABS: PHOSPHORUS 3.5 mg/dL (2.5-4.9)
[2024-06-11 06:50] LABS: UREA NITROGEN BLOOD < 5 mg/dL (9-23)
[2024-06-11] MEDS ORDERED: LIDOCAINE HCL 1% 10 MG/ML 10ML VIAL ONE (11:03)
[2024-06-11] MEDS: MAGNESIUM 2 G PREMIX 50 ML IV NR (11:09)
[2024-06-12] VITALS (28 sets, daily range): BP systolic 82–135; BP diastolic 54–93; PULSE 67–109; RESP 12–23; TEMP 35.0028–38.6142; O2SAT 92–100
[2024-06-12 06:57] LABS: CARBON DIOXIDE 23 mEq/L (21-32); CHLORIDE 105 mEq/L (98-107); POTASSIUM 3.6 mEq/L (3.5-5.1); SODIUM 137 mEq/L (136-145)
[2024-06-12 06:59] LABS: CALCIUM 8.8 mg/dL (8.7-10.4)
[2024-06-12 07:03] LABS: CREATININE 0.4 mg/dL (0.6-1.3); GLUCOSE 136 mg/dL (70-105)
[2024-06-12 07:06] LABS: PHOSPHORUS 3.4 mg/dL (2.5-4.9)
[2024-06-12 07:40] LABS: UREA NITROGEN BLOOD < 5 mg/dL (9-23)
[2024-06-12 09:25] LABS: BASOPHILS % 0.2 % (0.0-2.0); EOSINOPHILS % 0.9 % (0.0-5.0); HEMATOCRIT. 25.3 % (42.0-52.0); HEMOGLOBIN. 8.2 g/dL (14.0-18.0); LYMPHOCYTES % 12.8 % (20.0-50.0); MEAN CORPUSCULAR HEMOGLOBIN 27.4 pg (28.0-32.0); MEAN CORPUSCULAR HGB CONC 32.4 g/dL (31.0-37.0); MEAN CORPUSCULAR VOLUME 84.6 fL (80.0-94.0); MEAN PLATELET VOLUME 6.8 fl (7.4-10.4); MONOCYTES % 6.1 % (2.0-8.0); PLATELET 647 x1000/uL (130-400); RED BLOOD CELL COUNT 2.98 mill/uL (4.7-6.1); RED CELL DISTRIBUTION WIDTH 15.1 % (11.6-14.6)
[2024-06-12 09:33] LABS: WHITE BLOOD COUNT 13.9 x1000/uL (4.5-11.0)
[2024-06-12] MEDS: LORAZEPAM 2MG/ML INJ IV PRN (14:51)
[2024-06-12] MEDS: FAT EMULSIONS 500 ML IV SCH (21:13)
[2024-06-12] MEDS: TOTAL PARENTERAL NUTRITION 2,000 ML IV SCH (21:15)
[2024-06-13] VITALS (23 sets, daily range): BP systolic 101–137; BP diastolic 67–86; PULSE 97–125; RESP 14–25; TEMP 36.00288–37.2252; O2SAT 97–100
[2024-06-13 08:23] LABS: CARBON DIOXIDE 25 mEq/L (21-32); CHLORIDE 106 mEq/L (98-107); POTASSIUM 3.3 mEq/L (3.5-5.1); SODIUM 137 mEq/L (136-145)
[2024-06-13 08:28] LABS: CREATININE 0.4 mg/dL (0.6-1.3)
[2024-06-13 08:29] LABS: BASOPHILS % 0.3 % (0.0-2.0); EOSINOPHILS % 1.2 % (0.0-5.0); GLUCOSE 227 mg/dL (70-105); HEMATOCRIT. 25.2 % (42.0-52.0); HEMOGLOBIN. 7.8 g/dL (14.0-18.0); LYMPHOCYTES % 25.7 % (20.0-50.0); MEAN CORPUSCULAR HEMOGLOBIN 26.8 pg (28.0-32.0); MEAN CORPUSCULAR VOLUME 86.3 fL (80.0-94.0); MEAN PLATELET VOLUME 7.1 fl (7.4-10.4); MONOCYTES % 8.5 % (2.0-8.0); NEUTROPHILS % 64.3 % (40.0-76.0); PLATELET 555 x1000/uL (130-400); RED BLOOD CELL COUNT 2.92 mill/uL (4.7-6.1); RED CELL DISTRIBUTION WIDTH 15.1 % (11.6-14.6); UREA NITROGEN BLOOD 6 mg/dL (9-23); WHITE BLOOD COUNT 6.9 x1000/uL (4.5-11.0)
[2024-06-13 08:31] LABS: PHOSPHORUS 2.5 mg/dL (2.5-4.9)
[2024-06-13 08:32] LABS: ALANINE AMINOTRANSFERASE < 7 IU/L (10-49)
[2024-06-13 08:33] LABS: ALBUMIN 2.7 g/dL (3.2-4.8)
[2024-06-13 08:36] LABS: ASPARTATE AMINOTRANSFERASE < 8 IU/L (<34)
[2024-06-13] MEDS: MAGNESIUM 1G PREMIX 100ML IV NR (14:49)
[2024-06-13] MEDS: POTASSIUM PHOSPHATE 20MMOL in DEXT 5% WATER 250ML IV NR (14:51)
[2024-06-13] MEDS: INSULIN LISPRO 100 UNITS/ML SUBCUT NR (19:55)
[2024-06-13] MEDS: METOPROLOL TARTRATE 25MG TABLET PO SCH (22:29)
[2024-06-13] MEDS: INSULIN GLARGINE 100 UNITS/ML SUBCUT SCH (22:31)
[2024-06-14] VITALS (24 sets, daily range): BP systolic 92–128; BP diastolic 65–79; PULSE 101–122; RESP 12–26; TEMP 36.44736–37.72524; O2SAT 94–100
[2024-06-14] MEDS: TOTAL PARENTERAL NUTRITION 2,000 ML IV SCH ×2 (01:50→21:19)
[2024-06-14 08:16] LABS: BASOPHILS % 0.2 % (0.0-2.0); EOSINOPHILS % 0.7 % (0.0-5.0); HEMATOCRIT. 25.6 % (42.0-52.0); LYMPHOCYTES % 20.8 % (20.0-50.0); MEAN CORPUSCULAR HEMOGLOBIN 26.8 pg (28.0-32.0); MEAN CORPUSCULAR HGB CONC 31.5 g/dL (31.0-37.0); MEAN CORPUSCULAR VOLUME 85.1 fL (80.0-94.0); MEAN PLATELET VOLUME 6.9 fl (7.4-10.4); MONOCYTES % 7.9 % (2.0-8.0); NEUTROPHILS % 70.4 % (40.0-76.0); PLATELET 461 x1000/uL (130-400); RED CELL DISTRIBUTION WIDTH 15.1 % (11.6-14.6); WHITE BLOOD COUNT 10.4 x1000/uL (4.5-11.0)
[2024-06-14 08:17] LABS: CARBON DIOXIDE 25 mEq/L (21-32); CHLORIDE 103 mEq/L (98-107); POTASSIUM 3.1 mEq/L (3.5-5.1); SODIUM 134 mEq/L (136-145)
[2024-06-14 08:18] LABS: CALCIUM 8.5 mg/dL (8.7-10.4)
[2024-06-14 08:23] LABS: CREATININE 0.5 mg/dL (0.6-1.3); GLUCOSE 275 mg/dL (70-105); TRIGLYCERIDE 81 mg/dL (0-150); UREA NITROGEN BLOOD 9 mg/dL (9-23)
[2024-06-14 08:25] LABS: CHOLESTEROL 72 mg/dL (<200)
[2024-06-14] MEDS: METOPROLOL TARTRATE 50MG TABLET PO SCH (08:49)
[2024-06-14] MEDS: SODIUM CHLORIDE 0.9% IV NR (13:05)
[2024-06-14] MEDS: POTASSIUM PHOSPHATE IV NR (13:05)
[2024-06-15] VITALS (29 sets, daily range): BP systolic 82–123; BP diastolic 46–76; PULSE 73–117; RESP 12–24; TEMP 36.28068–38.0586; O2SAT 98–100
[2024-06-15 04:13] LABS: CHLORIDE 106 mEq/L (98-107); POTASSIUM 3.6 mEq/L (3.5-5.1); SODIUM 136 mEq/L (136-145)
[2024-06-15 04:14] LABS: CALCIUM 8.4 mg/dL (8.7-10.4); CARBON DIOXIDE 25 mEq/L (21-32)
[2024-06-15 04:19] LABS: GLUCOSE 308 mg/dL (70-105); UREA NITROGEN BLOOD 9 mg/dL (9-23)
[2024-06-15 04:21] LABS: ALANINE AMINOTRANSFERASE < 7 IU/L (10-49); ALBUMIN 2.3 g/dL (3.2-4.8); BILIRUBIN TOTAL 0.2 mg/dL (0.1-1.0); PHOSPHORUS 3.3 mg/dL (2.5-4.9); PROTEIN TOTAL 5.4 g/dL (6.0-8.3)
[2024-06-15 04:22] LABS: PROTHROMBIN TIME 11.4 sec (9.6-11.0)
[2024-06-15 04:24] LABS: ASPARTATE AMINOTRANSFERASE < 8 IU/L (<34)
[2024-06-15 05:19] LABS: CREATININE 0.4 mg/dL (0.6-1.3)
[2024-06-15 06:55] LABS: BASOPHILS % 0.7 % (0.0-2.0); DIFFERENTIAL COMMENT 0; EOSINOPHILS % 1.1 % (0.0-5.0); LYMPHOCYTES % 25.1 % (20.0-50.0); MEAN CORPUSCULAR HEMOGLOBIN 27.2 pg (28.0-32.0); MEAN CORPUSCULAR HGB CONC 31.8 g/dL (31.0-37.0); MEAN CORPUSCULAR VOLUME 85.4 fL (80.0-94.0); MEAN PLATELET VOLUME 7.3 fl (7.4-10.4); MONOCYTES % 10.3 % (2.0-8.0); NEUTROPHILS % 62.8 % (40.0-76.0); PLATELET 400 x1000/uL (130-400); RED BLOOD CELL COUNT 2.43 mill/uL (4.7-6.1); RED CELL DISTRIBUTION WIDTH 15.7 % (11.6-14.6); WHITE BLOOD COUNT 7.7 x1000/uL (4.5-11.0)
[2024-06-15 09:45] LABS: HEMOGLOBIN. 6.6 g/dL (14.0-18.0)
[2024-06-15 09:46] LABS: HEMATOCRIT. 20.7 % (42.0-52.0)
[2024-06-15] MEDS: MAGNESIUM 1G PREMIX 100ML IV NR (10:07)
[2024-06-15] MEDS: KCL 20MEQ/100ML X 2 FOR TOTAL KCL 40MEQ/200ML IV SCH (10:15)
[2024-06-15] MEDS: TOTAL PARENTERAL NUTRITION 2,000 ML IV SCH (22:05)
[2024-06-15 23:49] LABS: BASOPHILS % 0.5 % (0.0-2.0); EOSINOPHILS % 2.4 % (0.0-5.0); HEMATOCRIT. 28.9 % (42.0-52.0); HEMOGLOBIN. 9.2 g/dL (14.0-18.0); LYMPHOCYTES % 28.8 % (20.0-50.0); MEAN CORPUSCULAR HEMOGLOBIN 26.7 pg (28.0-32.0); MEAN CORPUSCULAR VOLUME 83.4 fL (80.0-94.0); MEAN PLATELET VOLUME 7.2 fl (7.4-10.4); MONOCYTES % 10.5 % (2.0-8.0); NEUTROPHILS % 57.8 % (40.0-76.0); PLATELET 420 x1000/uL (130-400); RED BLOOD CELL COUNT 3.46 mill/uL (4.7-6.1); RED CELL DISTRIBUTION WIDTH 16.5 % (11.6-14.6); WHITE BLOOD COUNT 8.5 x1000/uL (4.5-11.0)
[2024-06-16] VITALS (22 sets, daily range): BP systolic 99–122; BP diastolic 54–71; PULSE 80–131; RESP 12–25; TEMP 36.83628–38.00304; O2SAT 96–100
[2024-06-16 05:39] LABS: CHLORIDE 106 mEq/L (98-107); POTASSIUM 4.2 mEq/L (3.5-5.1); SODIUM 134 mEq/L (136-145)
[2024-06-16 05:42] LABS: CARBON DIOXIDE 23 mEq/L (21-32)
[2024-06-16 05:47] LABS: ALANINE AMINOTRANSFERASE 17 IU/L (10-49); CREATININE 0.4 mg/dL (0.6-1.3); GLUCOSE 238 mg/dL (70-105); UREA NITROGEN BLOOD 8 mg/dL (9-23)
[2024-06-16 05:49] LABS: ALBUMIN 2.5 g/dL (3.2-4.8); ASPARTATE AMINOTRANSFERASE 30 IU/L (<34); BILIRUBIN TOTAL < 0.2 mg/dL (0.1-1.0); PHOSPHORUS 2.2 mg/dL (2.5-4.9); PROTEIN TOTAL 5.4 g/dL (6.0-8.3)
[2024-06-16 06:22] LABS: BASOPHILS % 0.5 % (0.0-2.0); EOSINOPHILS % 2.8 % (0.0-5.0); HEMOGLOBIN. 8.8 g/dL (14.0-18.0); LYMPHOCYTES % 26.9 % (20.0-50.0); MEAN CORPUSCULAR HGB CONC 33.7 g/dL (31.0-37.0); MEAN PLATELET VOLUME 7.9 fl (7.4-10.4); MONOCYTES % 8.1 % (2.0-8.0); NEUTROPHILS % 61.7 % (40.0-76.0); PLATELET 360 x1000/uL (130-400); RED BLOOD CELL COUNT 3.13 mill/uL (4.7-6.1); RED CELL DISTRIBUTION WIDTH 16.5 % (11.6-14.6); WHITE BLOOD COUNT 9.9 x1000/uL (4.5-11.0)
[2024-06-17] VITALS (21 sets, daily range): BP systolic 90–124; BP diastolic 50–87; PULSE 79–118; RESP 18–27; TEMP 36.78072–37.83636; O2SAT 96–100
[2024-06-17 05:57] LABS: CHLORIDE 108 mEq/L (98-107); POTASSIUM 4.1 mEq/L (3.5-5.1); SODIUM 140 mEq/L (136-145)
[2024-06-17 05:58] LABS: CARBON DIOXIDE 29 mEq/L (21-32)
[2024-06-17 06:02] LABS: PROTHROMBIN TIME 10.9 sec (9.6-11.0)
[2024-06-17 06:03] LABS: CREATININE 0.3 mg/dL (0.6-1.3); GLUCOSE 169 mg/dL (70-105); UREA NITROGEN BLOOD 10 mg/dL (9-23)
[2024-06-17 06:05] LABS: PHOSPHORUS 4.4 mg/dL (2.5-4.9)
[2024-06-17 06:09] LABS: BASOPHILS % 0.5 % (0.0-2.0); EOSINOPHILS % 2.7 % (0.0-5.0); HEMATOCRIT. 24.6 % (42.0-52.0); HEMOGLOBIN. 7.9 g/dL (14.0-18.0); LYMPHOCYTES % 32.6 % (20.0-50.0); MEAN CORPUSCULAR HEMOGLOBIN 26.9 pg (28.0-32.0); MEAN CORPUSCULAR HGB CONC 32.1 g/dL (31.0-37.0); MEAN CORPUSCULAR VOLUME 83.6 fL (80.0-94.0); MEAN PLATELET VOLUME 7.6 fl (7.4-10.4); MONOCYTES % 10.2 % (2.0-8.0); PLATELET 383 x1000/uL (130-400); RED BLOOD CELL COUNT 2.95 mill/uL (4.7-6.1); RED CELL DISTRIBUTION WIDTH 15.9 % (11.6-14.6); WHITE BLOOD COUNT 7.2 x1000/uL (4.5-11.0)
[2024-06-17] MEDS ORDERED: TOTAL PARENTERAL NUTRITION 2,000 ML IV SCH ×2 (12:00→21:00)
[2024-06-17] MEDS ORDERED: ROCURONIUM BROMIDE 10MG/ML VIAL 5ML IV ONE (15:20)
[2024-06-17] MEDS: CEFAZOLIN 1000MG PREMIX 50 ML IV SCH (17:17)
[2024-06-17] MEDS: TOTAL PARENTERAL NUTRITION 2,000 ML IV SCH (20:28)
[2024-06-18] VITALS (20 sets, daily range): BP systolic 99–147; BP diastolic 43–133; PULSE 102–130; RESP 16–29; TEMP 36.61404–39.22536; O2SAT 96–100
[2024-06-18] MEDS: TOTAL PARENTERAL NUTRITION 2,000 ML IV SCH (14:13)
[2024-06-18] MEDS: DEXTROSE 50% WATER 50ML SYRINGE IV PRN (17:53)
[2024-06-18] MEDS: PIPERACILLIN/TAZO 3.375G/50ML 50 ML IV SCH (22:37)
[2024-06-19] VITALS (26 sets, daily range): BP systolic 95–113; BP diastolic 51–84; PULSE 97–129; RESP 16–28; TEMP 36.6696–37.61412; O2SAT 97–100
[2024-06-19 05:42] LABS: BASOPHILS % 0.3 % (0.0-2.0); EOSINOPHILS % 0.4 % (0.0-5.0); HEMATOCRIT. 23.5 % (42.0-52.0); HEMOGLOBIN. 7.3 g/dL (14.0-18.0); LYMPHOCYTES % 23.9 % (20.0-50.0); MEAN CORPUSCULAR HEMOGLOBIN 25.7 pg (28.0-32.0); MEAN CORPUSCULAR VOLUME 82.9 fL (80.0-94.0); MEAN PLATELET VOLUME 7.4 fl (7.4-10.4); MONOCYTES % 9.9 % (2.0-8.0); NEUTROPHILS % 65.5 % (40.0-76.0); PLATELET 382 x1000/uL (130-400); RED BLOOD CELL COUNT 2.84 mill/uL (4.7-6.1); WHITE BLOOD COUNT 9.2 x1000/uL (4.5-11.0)
[2024-06-19 05:50] LABS: CHLORIDE 104 mEq/L (98-107); POTASSIUM 3.8 mEq/L (3.5-5.1); SODIUM 136 mEq/L (136-145)
[2024-06-19 05:51] LABS: CARBON DIOXIDE 26 mEq/L (21-32)
[2024-06-19 05:53] LABS: UREA NITROGEN BLOOD 12 mg/dL (9-23)
[2024-06-19 05:56] LABS: GLUCOSE 137 mg/dL (70-105)
[2024-06-19 05:58] LABS: ALANINE AMINOTRANSFERASE 25 IU/L (10-49); ALBUMIN 2.4 g/dL (3.2-4.8); ASPARTATE AMINOTRANSFERASE 29 IU/L (<34); BILIRUBIN DIRECT 0.1 mg/dL (<=3.0); BILIRUBIN TOTAL 0.3 mg/dL (0.1-1.0); PROTEIN TOTAL 5.9 g/dL (6.0-8.3)
[2024-06-19 07:06] LABS: CREATININE 0.5 mg/dL (0.6-1.3)
[2024-06-19] MEDS: DIGOXIN 500MCG/2ML AMP IV NR (11:21)
[2024-06-19] MEDS: METOPROLOL TARTRATE 25MG TABLET PO SCH (13:15)
[2024-06-19] MEDS: SODIUM CHLORIDE 0.9% 1,000 ML IV SCH (13:25)
[2024-06-19] MEDS: SODIUM CHLORIDE 0.9% 250 ML IV ONE (14:41)
[2024-06-19] MEDS: DIGOXIN 125MCG TABLET NG SCH (17:41)
[2024-06-20] VITALS (24 sets, daily range): BP systolic 88–101; BP diastolic 46–75; PULSE 66–114; RESP 12–27; TEMP 36.3918–36.9474; O2SAT 100
[2024-06-20] MEDS: DEXTROSE 50% WATER 50ML SYRINGE IV PRN (07:40)
[2024-06-20 08:14] LABS: BASOPHILS % 0.3 % (0.0-2.0); EOSINOPHILS % 1.6 % (0.0-5.0); HEMATOCRIT. 23.1 % (42.0-52.0); HEMOGLOBIN. 7.1 g/dL (14.0-18.0); LYMPHOCYTES % 11.3 % (20.0-50.0); MEAN CORPUSCULAR HEMOGLOBIN 26.3 pg (28.0-32.0); MEAN CORPUSCULAR VOLUME 84.9 fL (80.0-94.0); MEAN PLATELET VOLUME 7.3 fl (7.4-10.4); MONOCYTES % 8.8 % (2.0-8.0); PLATELET 392 x1000/uL (130-400); RED BLOOD CELL COUNT 2.72 mill/uL (4.7-6.1); RED CELL DISTRIBUTION WIDTH 15.6 % (11.6-14.6); WHITE BLOOD COUNT 8.4 x1000/uL (4.5-11.0)
[2024-06-20 08:23] LABS: CHLORIDE 110 mEq/L (98-107); POTASSIUM 3.2 mEq/L (3.5-5.1); SODIUM 141 mEq/L (136-145)
[2024-06-20 08:24] LABS: CALCIUM 8.8 mg/dL (8.7-10.4); CARBON DIOXIDE 28 mEq/L (21-32)
[2024-06-20 08:29] LABS: CREATININE 0.5 mg/dL (0.6-1.3); GLUCOSE 111 mg/dL (70-105); UREA NITROGEN BLOOD 14 mg/dL (9-23)
[2024-06-20 08:31] LABS: PHOSPHORUS 3.9 mg/dL (2.5-4.9)
[2024-06-20 12:14] LABS: BG BASE EXCESS 2.3 mmol/L (-2.0-3.0); BG CARBOXYHEMOGLOBIN 0.3 % (0.5-1.5); BG DEOXYHEMOGLOBIN 0.7 % (0.0-5.0); BG FRACTION INSPIRED OXYGEN 30; BG HCO3 ACT 25.3 mmol/L (21.0-28.0); BG METHEMOGLOBIN 0.3 % (0.5-1.5); BG OXYGEN SATURATION 99.3 % (94.0-98.0); BG OXYHEMOGLOBIN 98.7 % (94.0-98.0); BG PCO2 32.5 mmHg (35.0-48.0); BG PH 7.509 (7.350-7.450); BG PO2 145.5 mmHg (83.0-108.0); BG SAMPLE SITE RIGHT BRACHIAL; BG TOTAL HEMOGLOBIN 7.7 g/dL (13.5-17.5); BG VENT MODE VENT - AC
[2024-06-20] MEDS: KCL 20MEQ/100ML PREMIX 100 ML IV SCH (12:14)
[2024-06-20] MEDS ORDERED: LEVETIRACETAM 500MG in NACL 100ML PREMIX IV SCH (14:00)
[2024-06-20] MEDS: LEVETIRACETAM 500MG PREMIX 100ML IV SCH (15:02)
[2024-06-20] MEDS: METOCLOPRAMIDE HCL 10MG/2ML VIAL IV SCH (18:28)
[2024-06-21] VITALS (22 sets, daily range): BP systolic 98–123; BP diastolic 47–70; PULSE 70–112; RESP 12–22; TEMP 36.44736–37.55856; O2SAT 97–100
[2024-06-21 05:25] LABS: CARBON DIOXIDE 28 mEq/L (21-32); CHLORIDE 111 mEq/L (98-107); POTASSIUM 3.6 mEq/L (3.5-5.1); SODIUM 144 mEq/L (136-145)
[2024-06-21 05:26] LABS: CALCIUM 9.2 mg/dL (8.7-10.4)
[2024-06-21 05:30] LABS: CREATININE 0.4 mg/dL (0.6-1.3); UREA NITROGEN BLOOD 11 mg/dL (9-23)
[2024-06-21 05:32] LABS: ALANINE AMINOTRANSFERASE 32 IU/L (10-49); ALBUMIN 2.8 g/dL (3.2-4.8)
[2024-06-21 05:33] LABS: ASPARTATE AMINOTRANSFERASE 30 IU/L (<34); BILIRUBIN TOTAL 0.2 mg/dL (0.1-1.0); PROTEIN TOTAL 6.2 g/dL (6.0-8.3)
[2024-06-21 05:48] LABS: PROTHROMBIN TIME 10.9 sec (9.6-11.0)
[2024-06-21 06:25] LABS: BASOPHILS % 0.2 % (0.0-2.0); EOSINOPHILS % 0.2 % (0.0-5.0); HEMATOCRIT. 21.8 % (42.0-52.0); HEMOGLOBIN. 7.1 g/dL (14.0-18.0); LYMPHOCYTES % 16.2 % (20.0-50.0); MEAN CORPUSCULAR HEMOGLOBIN 27.1 pg (28.0-32.0); MEAN CORPUSCULAR HGB CONC 32.4 g/dL (31.0-37.0); MEAN CORPUSCULAR VOLUME 83.7 fL (80.0-94.0); MEAN PLATELET VOLUME 7.7 fl (7.4-10.4); MONOCYTES % 8.4 % (2.0-8.0); PLATELET 451 x1000/uL (130-400); RED BLOOD CELL COUNT 2.61 mill/uL (4.7-6.1); RED CELL DISTRIBUTION WIDTH 15.5 % (11.6-14.6); WHITE BLOOD COUNT 9.1 x1000/uL (4.5-11.0)
[2024-06-21 06:26] LABS: BILIRUBIN DIRECT < 0.1 mg/dL (<=3.0)
[2024-06-21 06:28] LABS: GLUCOSE 43 mg/dL (70-105)
[2024-06-21] MEDS: INSULIN LISPRO 100 UNITS/ML SUBCUT SCH (12:00)
[2024-06-21] MEDS: DIGOXIN 500MCG/2ML AMP IV SCH (18:26)
[2024-06-21] MEDS: TOTAL PARENTERAL NUTRITION 2,000 ML IV SCH (21:16)
[2024-06-22] VITALS (25 sets, daily range): BP systolic 110–133; BP diastolic 59–71; PULSE 67–107; RESP 14–25; TEMP 36.55848–37.66968; O2SAT 97–100
[2024-06-22] MEDS: INSULIN GLARGINE 100 UNITS/ML SUBCUT SCH (00:15)
[2024-06-22] MEDS: BLOOD SUGAR DIAGNOSTIC STRIP TEST SCH (00:18)
[2024-06-22 05:26] LABS: CARBON DIOXIDE 26 mEq/L (21-32); CHLORIDE 107 mEq/L (98-107); SODIUM 137 mEq/L (136-145)
[2024-06-22 05:30] LABS: BASOPHILS % 0.3 % (0.0-2.0); EOSINOPHILS % 1.6 % (0.0-5.0); HEMATOCRIT. 22.1 % (42.0-52.0); HEMOGLOBIN. 7.1 g/dL (14.0-18.0); LYMPHOCYTES % 26.2 % (20.0-50.0); MEAN CORPUSCULAR HEMOGLOBIN 26.8 pg (28.0-32.0); MEAN CORPUSCULAR VOLUME 83.8 fL (80.0-94.0); MEAN PLATELET VOLUME 7.8 fl (7.4-10.4); MONOCYTES % 7.4 % (2.0-8.0); NEUTROPHILS % 64.5 % (40.0-76.0); PLATELET 461 x1000/uL (130-400); RED BLOOD CELL COUNT 2.64 mill/uL (4.7-6.1); RED CELL DISTRIBUTION WIDTH 15.3 % (11.6-14.6); WHITE BLOOD COUNT 5.8 x1000/uL (4.5-11.0)
[2024-06-22 05:32] LABS: CREATININE 0.5 mg/dL (0.6-1.3); TRIGLYCERIDE 103 mg/dL (0-150); UREA NITROGEN BLOOD 11 mg/dL (9-23)
[2024-06-22 05:34] LABS: CHOLESTEROL 89 mg/dL (<200); DIGOXIN 0.7 ng/mL (0.8-2.0); PHOSPHORUS 2.8 mg/dL (2.5-4.9)
[2024-06-22 06:02] LABS: GLUCOSE 205 mg/dL (70-105)
[2024-06-22] MEDS: KCL 20MEQ/100ML PREMIX 100 ML IV SCH (09:43)
[2024-06-22] MEDS: SODIUM CHLORIDE 0.9% 1,000 ML IV SCH (11:10)
[2024-06-22] MEDS: FAT EMULSIONS 500 ML IV SCH (21:39)
[2024-06-23] VITALS (27 sets, daily range): BP systolic 101–137; BP diastolic 51–67; PULSE 59–101; RESP 15–25; TEMP 36.3918–37.55856; O2SAT 96–100
[2024-06-23 06:25] LABS: CHLORIDE 107 mEq/L (98-107); POTASSIUM 3.1 mEq/L (3.5-5.1); SODIUM 138 mEq/L (136-145)
[2024-06-23 06:26] LABS: CARBON DIOXIDE 24 mEq/L (21-32)
[2024-06-23 06:27] LABS: CALCIUM 8.4 mg/dL (8.7-10.4)
[2024-06-23 06:31] LABS: GLUCOSE 191 mg/dL (70-105); UREA NITROGEN BLOOD 13 mg/dL (9-23)
[2024-06-23 06:34] LABS: PHOSPHORUS 1.2 mg/dL (2.5-4.9)
[2024-06-23 06:44] LABS: BASOPHILS % 0.3 % (0.0-2.0); DIFFERENTIAL COMMENT 0; HEMATOCRIT. 21.2 % (42.0-52.0); LYMPHOCYTES % 29.5 % (20.0-50.0); MEAN CORPUSCULAR HEMOGLOBIN 26.7 pg (28.0-32.0); MEAN CORPUSCULAR HGB CONC 31.7 g/dL (31.0-37.0); MEAN CORPUSCULAR VOLUME 84.1 fL (80.0-94.0); MEAN PLATELET VOLUME 7.8 fl (7.4-10.4); MONOCYTES % 6.1 % (2.0-8.0); NEUTROPHILS % 61.1 % (40.0-76.0); PLATELET 441 x1000/uL (130-400); RED BLOOD CELL COUNT 2.52 mill/uL (4.7-6.1); RED CELL DISTRIBUTION WIDTH 15.1 % (11.6-14.6); WHITE BLOOD COUNT 5.9 x1000/uL (4.5-11.0)
[2024-06-23 06:56] LABS: HEMOGLOBIN. 6.7 g/dL (14.0-18.0)
[2024-06-23 06:58] LABS: CREATININE 0.3 mg/dL (0.6-1.3)
[2024-06-23] MEDS: POTASSIUM PHOSPHATE 30 MMOL in SODIUM CHLORIDE 0.9% 490 ML IV NR (12:10)
[2024-06-23] MEDS: LORAZEPAM 2MG/ML INJ IV PRN (16:58)
[2024-06-23] MEDS: ACETAMINOPHEN 650MG/20.3ML UDC GT PRN (16:58)
[2024-06-23] MEDS: TOTAL PARENTERAL NUTRITION 2,000 ML IV SCH (21:42)
[2024-06-23 23:14] LABS: HEMATOCRIT 25.2 % (42.0-52.0); HEMOGLOBIN 8.2 g/dL (14.0-18.0)
[2024-06-24] VITALS (23 sets, daily range): BP systolic 112–137; BP diastolic 51–75; PULSE 52–91; RESP 17–25; TEMP 36.114–37.05852; O2SAT 98–100
[2024-06-24 06:02] LABS: PHOSPHORUS 3.7 mg/dL (2.5-4.9)
[2024-06-24] MEDS: METOCLOPRAMIDE HCL 10MG/2ML VIAL IV SCH (12:56)
[2024-06-24] MEDS ORDERED: LIDOCAINE HCL 1% 10 MG/ML 10ML VIAL ONE (13:30)
[2024-06-24] MEDS ORDERED: SODIUM BICARBONATE 4% 2.4MEQ/5ML VIAL IV ONE (13:30)
[2024-06-25] VITALS (23 sets, daily range): BP systolic 111–132; BP diastolic 63–76; PULSE 66–82; RESP 13–21; TEMP 36.22512–36.72516; O2SAT 99–100
[2024-06-25 07:14] LABS: CALCIUM 8.6 mg/dL (8.7-10.4); CARBON DIOXIDE 28 mEq/L (21-32); CHLORIDE 105 mEq/L (98-107); POTASSIUM 3.7 mEq/L (3.5-5.1); SODIUM 138 mEq/L (136-145)
[2024-06-25 07:19] LABS: CREATININE 0.3 mg/dL (0.6-1.3); GLUCOSE 188 mg/dL (70-105)
[2024-06-25 07:20] LABS: UREA NITROGEN BLOOD 11 mg/dL (9-23)
[2024-06-25 07:22] LABS: PHOSPHORUS 3.2 mg/dL (2.5-4.9)
[2024-06-25 07:32] LABS: BASOPHILS % 0.4 % (0.0-2.0); EOSINOPHILS % 2.1 % (0.0-5.0); HEMATOCRIT. 25.9 % (42.0-52.0); HEMOGLOBIN. 8.3 g/dL (14.0-18.0); LYMPHOCYTES % 34.2 % (20.0-50.0); MEAN CORPUSCULAR HEMOGLOBIN 27.2 pg (28.0-32.0); MEAN CORPUSCULAR HGB CONC 32.1 g/dL (31.0-37.0); MEAN CORPUSCULAR VOLUME 84.8 fL (80.0-94.0); MEAN PLATELET VOLUME 8.1 fl (7.4-10.4); MONOCYTES % 8.2 % (2.0-8.0); NEUTROPHILS % 55.1 % (40.0-76.0); PLATELET 610 x1000/uL (130-400); RED BLOOD CELL COUNT 3.05 mill/uL (4.7-6.1); RED CELL DISTRIBUTION WIDTH 15.6 % (11.6-14.6); WHITE BLOOD COUNT 6.2 x1000/uL (4.5-11.0)
[2024-06-25] MEDS ORDERED: BLOOD SUGAR DIAGNOSTIC STRIP TEST SCH (09:00)
[2024-06-25] MEDS: MAGNESIUM 2 G PREMIX 50 ML IV ONE (11:37)
[2024-06-25] MEDS: PIPERACILLIN/TAZO 3.375G/50ML 50 ML IV SCH (13:28)
[2024-06-25] MEDS: POTASSIUM CHLORIDE 20MEQ/PACKET NG NR (15:06)
[2024-06-25] MEDS: LACTOBACILLUS GG CAPSULE GT SCH (20:51)
[2024-06-26] VITALS (24 sets, daily range): BP systolic 108–132; BP diastolic 53–83; PULSE 64–97; RESP 18–24; TEMP 36.3918–36.6696; O2SAT 100
[2024-06-26 06:53] LABS: BASOPHILS % 0.7 % (0.0-2.0); EOSINOPHILS % 4.2 % (0.0-5.0); HEMATOCRIT. 28.3 % (42.0-52.0); HEMOGLOBIN. 9.4 g/dL (14.0-18.0); LYMPHOCYTES % 35.7 % (20.0-50.0); MEAN CORPUSCULAR HEMOGLOBIN 28.2 pg (28.0-32.0); MEAN CORPUSCULAR HGB CONC 33.2 g/dL (31.0-37.0); MEAN CORPUSCULAR VOLUME 84.9 fL (80.0-94.0); MEAN PLATELET VOLUME 7.7 fl (7.4-10.4); MONOCYTES % 5.3 % (2.0-8.0); NEUTROPHILS % 54.1 % (40.0-76.0); PLATELET 690 x1000/uL (130-400); RED BLOOD CELL COUNT 3.33 mill/uL (4.7-6.1); RED CELL DISTRIBUTION WIDTH 15.9 % (11.6-14.6)
[2024-06-26 07:05] LABS: CALCIUM 8.8 mg/dL (8.7-10.4); CARBON DIOXIDE 25 mEq/L (21-32); CHLORIDE 105 mEq/L (98-107); SODIUM 137 mEq/L (136-145)
[2024-06-26 07:11] LABS: GLUCOSE 186 mg/dL (70-105); UREA NITROGEN BLOOD 11 mg/dL (9-23)
[2024-06-26 07:13] LABS: PHOSPHORUS 3.2 mg/dL (2.5-4.9)
[2024-06-26 07:15] LABS: CREATININE 0.4 mg/dL (0.6-1.3)
[2024-06-27] VITALS (24 sets, daily range): BP systolic 102–146; BP diastolic 62–124; PULSE 68–105; RESP 14–28; TEMP 36.16956–37.61412; O2SAT 100
[2024-06-27 07:20] LABS: BASOPHILS % 0.5 % (0.0-2.0); EOSINOPHILS % 2.9 % (0.0-5.0); HEMATOCRIT. 26.2 % (42.0-52.0); HEMOGLOBIN. 8.5 g/dL (14.0-18.0); LYMPHOCYTES % 20.8 % (20.0-50.0); MEAN CORPUSCULAR HEMOGLOBIN 27.5 pg (28.0-32.0); MEAN CORPUSCULAR HGB CONC 32.4 g/dL (31.0-37.0); MEAN CORPUSCULAR VOLUME 84.8 fL (80.0-94.0); MEAN PLATELET VOLUME 7.3 fl (7.4-10.4); MONOCYTES % 7.3 % (2.0-8.0); NEUTROPHILS % 68.5 % (40.0-76.0); PLATELET 641 x1000/uL (130-400); RED BLOOD CELL COUNT 3.09 mill/uL (4.7-6.1); RED CELL DISTRIBUTION WIDTH 16.3 % (11.6-14.6); WHITE BLOOD COUNT 7.4 x1000/uL (4.5-11.0)
[2024-06-27 07:28] LABS: CHLORIDE 105 mEq/L (98-107); SODIUM 137 mEq/L (136-145)
[2024-06-27 07:29] LABS: CALCIUM 8.9 mg/dL (8.7-10.4); CARBON DIOXIDE 28 mEq/L (21-32)
[2024-06-27 07:34] LABS: CREATININE 0.4 mg/dL (0.6-1.3); GLUCOSE 195 mg/dL (70-105); UREA NITROGEN BLOOD 14 mg/dL (9-23)
[2024-06-27 07:36] LABS: PHOSPHORUS 4.3 mg/dL (2.5-4.9)
[2024-06-27] MEDS: MEROPENEM 1G/100ML IV SCH (16:03)
[2024-06-28] VITALS (24 sets, daily range): BP systolic 106–135; BP diastolic 56–71; PULSE 77–101; RESP 13–24; TEMP 36.22512–37.28076; O2SAT 97–100
[2024-06-28] MEDS: DEXTROSE 50% WATER 50ML SYRINGE IV ONE
[2024-06-28] MEDS: LORAZEPAM 2MG/ML INJ IV PRN (03:00)
[2024-06-28 12:08] LABS: HEMATOCRIT 27.6 % (42.0-52.0); HEMOGLOBIN 8.9 g/dL (14.0-18.0); MEAN CORPUSCULAR HEMOGLOBIN 27.8 pg (28.0-32.0); MEAN CORPUSCULAR HGB CONC 32.2 g/dL (31.0-37.0); MEAN CORPUSCULAR VOLUME 86.3 fL (80.0-94.0); PLATELET 671 x1000/uL (130-400); RED CELL DISTRIBUTION WIDTH 17.2 % (11.6-14.6); WHITE BLOOD COUNT 7.1 x1000/uL (4.5-11.0)
[2024-06-28 12:31] LABS: CHLORIDE 107 mEq/L (98-107); POTASSIUM 3.7 mEq/L (3.5-5.1); SODIUM 142 mEq/L (136-145)
[2024-06-28 12:32] LABS: CARBON DIOXIDE 29 mEq/L (21-32)
[2024-06-28 12:37] LABS: CREATININE 0.4 mg/dL (0.6-1.3); GLUCOSE 92 mg/dL (70-105); UREA NITROGEN BLOOD 16 mg/dL (9-23)
[2024-06-29] VITALS (23 sets, daily range): BP systolic 98–126; BP diastolic 56–80; PULSE 73–99; RESP 12–21; TEMP 36.61404–37.61412; O2SAT 96–100
[2024-06-30] VITALS (26 sets, daily range): BP systolic 92–130; BP diastolic 52–113; PULSE 75–93; RESP 12–20; TEMP 36.78072–37.39188; O2SAT 95–100
[2024-06-30 06:13] LABS: INR 0.9; PROTHROMBIN TIME 10.6 sec (9.6-11.0)
[2024-06-30 06:15] LABS: BASOPHILS % 0.3 % (0.0-2.0); EOSINOPHILS % 2.6 % (0.0-5.0); HEMATOCRIT. 27.8 % (42.0-52.0); HEMOGLOBIN. 9.2 g/dL (14.0-18.0); LYMPHOCYTES % 33.9 % (20.0-50.0); MEAN CORPUSCULAR HEMOGLOBIN 28.3 pg (28.0-32.0); MEAN CORPUSCULAR HGB CONC 33.1 g/dL (31.0-37.0); MEAN CORPUSCULAR VOLUME 85.6 fL (80.0-94.0); MEAN PLATELET VOLUME 7.3 fl (7.4-10.4); MONOCYTES % 8.9 % (2.0-8.0); NEUTROPHILS % 54.3 % (40.0-76.0); PLATELET 602 x1000/uL (130-400); RED BLOOD CELL COUNT 3.24 mill/uL (4.7-6.1)
[2024-06-30 06:17] LABS: CHLORIDE 105 mEq/L (98-107); POTASSIUM 3.7 mEq/L (3.5-5.1); SODIUM 139 mEq/L (136-145)
[2024-06-30 06:20] LABS: CALCIUM 9.4 mg/dL (8.7-10.4); CARBON DIOXIDE 30 mEq/L (21-32)
[2024-06-30 06:24] LABS: UREA NITROGEN BLOOD 18 mg/dL (9-23)
[2024-06-30 06:25] LABS: CREATININE 0.5 mg/dL (0.6-1.3); GLUCOSE 120 mg/dL (70-105)
[2024-06-30 06:27] LABS: ALANINE AMINOTRANSFERASE 39 IU/L (10-49); ASPARTATE AMINOTRANSFERASE 23 IU/L (<34); PHOSPHORUS 3.5 mg/dL (2.5-4.9)
[2024-06-30 06:28] LABS: BILIRUBIN TOTAL < 0.2 mg/dL (0.1-1.0); PROTEIN TOTAL 6.5 g/dL (6.0-8.3)
[2024-06-30 06:30] LABS: BILIRUBIN DIRECT < 0.1 mg/dL (<=3.0)
[2024-07-01] VITALS (27 sets, daily range): BP systolic 80–146; BP diastolic 49–93; PULSE 61–106; RESP 12–19; TEMP 36.114–38.44752; O2SAT 96–100
[2024-07-02] VITALS (23 sets, daily range): BP systolic 116–140; BP diastolic 59–92; PULSE 84–120; RESP 12–25; TEMP 36.114–38.892; O2SAT 77–100
[2024-07-02 07:51] LABS: CARBON DIOXIDE 29 mEq/L (21-32); CHLORIDE 106 mEq/L (98-107); POTASSIUM 3.5 mEq/L (3.5-5.1); SODIUM 141 mEq/L (136-145)
[2024-07-02 07:52] LABS: CALCIUM 9.1 mg/dL (8.7-10.4)
[2024-07-02 07:56] LABS: CREATININE 0.4 mg/dL (0.6-1.3)
[2024-07-02 07:57] LABS: BASOPHILS % 0.4 % (0.0-2.0); EOSINOPHILS % 5.4 % (0.0-5.0); GLUCOSE 135 mg/dL (70-105); HEMATOCRIT. 26.8 % (42.0-52.0); HEMOGLOBIN. 8.6 g/dL (14.0-18.0); LYMPHOCYTES % 23.7 % (20.0-50.0); MEAN CORPUSCULAR HEMOGLOBIN 27.3 pg (28.0-32.0); MEAN CORPUSCULAR HGB CONC 32.1 g/dL (31.0-37.0); MEAN CORPUSCULAR VOLUME 85.3 fL (80.0-94.0); MONOCYTES % 7.8 % (2.0-8.0); NEUTROPHILS % 62.7 % (40.0-76.0); PLATELET 604 x1000/uL (130-400); RED BLOOD CELL COUNT 3.14 mill/uL (4.7-6.1); RED CELL DISTRIBUTION WIDTH 16.9 % (11.6-14.6); UREA NITROGEN BLOOD 16 mg/dL (9-23); WHITE BLOOD COUNT 6.8 x1000/uL (4.5-11.0)
[2024-07-02 07:59] LABS: PHOSPHORUS 3.3 mg/dL (2.5-4.9)
[2024-07-02] MEDS: DIATR MEGLU/DIATRIZOATE SOLN 30ML GT SCH (11:34)
[2024-07-02] MEDS: SODIUM CHLORIDE 0.45% 500 ML IV ONE (21:06)
[2024-07-03] VITALS (23 sets, daily range): BP systolic 85–153; BP diastolic 59–98; PULSE 66–99; RESP 12–25; TEMP 36.3918–37.94748; O2SAT 95–100
[2024-07-03] MEDS: MEROPENEM 1G/100ML 100 ML IV SCH (06:27)
[2024-07-03 06:57] LABS: CHLORIDE 105 mEq/L (98-107); POTASSIUM 3.4 mEq/L (3.5-5.1); SODIUM 140 mEq/L (136-145)
[2024-07-03 06:58] LABS: CALCIUM 8.9 mg/dL (8.7-10.4); CARBON DIOXIDE 31 mEq/L (21-32)
[2024-07-03 07:03] LABS: CREATININE 0.4 mg/dL (0.6-1.3); GLUCOSE 146 mg/dL (70-105); UREA NITROGEN BLOOD 13 mg/dL (9-23)
[2024-07-03 07:45] LABS: BASOPHILS % 0.5 % (0.0-2.0); EOSINOPHILS % 5.5 % (0.0-5.0); HEMATOCRIT. 24.9 % (42.0-52.0); HEMOGLOBIN. 8.1 g/dL (14.0-18.0); LYMPHOCYTES % 29.7 % (20.0-50.0); MEAN CORPUSCULAR HEMOGLOBIN 27.7 pg (28.0-32.0); MEAN CORPUSCULAR HGB CONC 32.5 g/dL (31.0-37.0); MEAN CORPUSCULAR VOLUME 85.3 fL (80.0-94.0); MEAN PLATELET VOLUME 8.2 fl (7.4-10.4); MONOCYTES % 7.2 % (2.0-8.0); NEUTROPHILS % 57.1 % (40.0-76.0); PLATELET 519 x1000/uL (130-400); RED BLOOD CELL COUNT 2.93 mill/uL (4.7-6.1); RED CELL DISTRIBUTION WIDTH 16.5 % (11.6-14.6); WHITE BLOOD COUNT 6.4 x1000/uL (4.5-11.0)
[2024-07-03] MEDS: KCL 20MEQ/100ML PREMIX 100 ML IV SCH (09:19)
[2024-07-03 15:40] LABS: BG BASE EXCESS 5.3 mmol/L (-2.0-3.0); BG CARBOXYHEMOGLOBIN 0.3 % (0.5-1.5); BG DEOXYHEMOGLOBIN 1.1 % (0.0-5.0); BG FRACTION INSPIRED OXYGEN 30; BG HCO3 ACT 28.9 mmol/L (21.0-28.0); BG METHEMOGLOBIN 0.3 % (0.5-1.5); BG OXYGEN SATURATION 98.9 % (94.0-98.0); BG OXYHEMOGLOBIN 98.3 % (94.0-98.0); BG PCO2 38.3 mmHg (35.0-48.0); BG PH 7.495 (7.350-7.450); BG PO2 129.9 mmHg (83.0-108.0); BG SAMPLE SITE RIGHT RADIAL; BG TOTAL HEMOGLOBIN 10.5 g/dL (13.5-17.5); BG VENT MODE VENT - AC
[2024-07-03] MEDS: LACTATED RINGERS 1,000 ML IV SCH (16:31)
[2024-07-03] MEDS: IPRATROPIUM/ALBUTEROL 0.5-3(2.5)MG/3ML NEB HHN SCH (20:33)
[2024-07-04] VITALS (24 sets, daily range): BP systolic 92–140; BP diastolic 54–85; PULSE 66–107; RESP 13–22; TEMP 36.50292–37.39188; O2SAT 93–100
[2024-07-04 06:19] LABS: CHLORIDE 106 mEq/L (98-107); POTASSIUM 3.4 mEq/L (3.5-5.1); SODIUM 139 mEq/L (136-145)
[2024-07-04 06:20] LABS: CALCIUM 8.7 mg/dL (8.7-10.4); CARBON DIOXIDE 29 mEq/L (21-32)
[2024-07-04 06:25] LABS: CREATININE 0.3 mg/dL (0.6-1.3); GLUCOSE 125 mg/dL (70-105); UREA NITROGEN BLOOD 10 mg/dL (9-23)
[2024-07-04 06:27] LABS: BASOPHILS % 0.8 % (0.0-2.0); EOSINOPHILS % 7.6 % (0.0-5.0); HEMATOCRIT. 25.2 % (42.0-52.0); HEMOGLOBIN. 7.9 g/dL (14.0-18.0); LYMPHOCYTES % 33.3 % (20.0-50.0); MEAN CORPUSCULAR HEMOGLOBIN 26.5 pg (28.0-32.0); MEAN CORPUSCULAR HGB CONC 31.5 g/dL (31.0-37.0); MEAN PLATELET VOLUME 8.1 fl (7.4-10.4); MONOCYTES % 7.2 % (2.0-8.0); NEUTROPHILS % 51.1 % (40.0-76.0); PLATELET 510 x1000/uL (130-400); RED CELL DISTRIBUTION WIDTH 16.1 % (11.6-14.6); WHITE BLOOD COUNT 6.1 x1000/uL (4.5-11.0)
[2024-07-04] MEDS: KCL 20MEQ/100ML PREMIX 100 ML IV SCH (14:09)
[2024-07-05] VITALS (31 sets, daily range): BP systolic 102–129; BP diastolic 52–78; PULSE 72–117; RESP 14–26; TEMP 36.44736–38.0586; O2SAT 97–100
[2024-07-05 05:33] LABS: BASOPHILS % 0.7 % (0.0-2.0); EOSINOPHILS % 8.8 % (0.0-5.0); HEMATOCRIT. 25.3 % (42.0-52.0); LYMPHOCYTES % 23.9 % (20.0-50.0); MEAN CORPUSCULAR HEMOGLOBIN 26.6 pg (28.0-32.0); MEAN CORPUSCULAR HGB CONC 31.6 g/dL (31.0-37.0); MEAN CORPUSCULAR VOLUME 84.2 fL (80.0-94.0); MEAN PLATELET VOLUME 7.8 fl (7.4-10.4); MONOCYTES % 9.1 % (2.0-8.0); NEUTROPHILS % 57.5 % (40.0-76.0); PLATELET 508 x1000/uL (130-400); RED BLOOD CELL COUNT 3.01 mill/uL (4.7-6.1); RED CELL DISTRIBUTION WIDTH 16.4 % (11.6-14.6); WHITE BLOOD COUNT 5.6 x1000/uL (4.5-11.0)
[2024-07-05 05:43] LABS: CARBON DIOXIDE 28 mEq/L (21-32)
[2024-07-05 05:44] LABS: CALCIUM 9.1 mg/dL (8.7-10.4)
[2024-07-05 06:16] LABS: CHLORIDE 110 mEq/L (98-107); SODIUM 142 mEq/L (136-145)
[2024-07-05 06:22] LABS: GLUCOSE 142 mg/dL (70-105); UREA NITROGEN BLOOD 7 mg/dL (9-23)
[2024-07-05 06:24] LABS: CREATININE 0.4 mg/dL (0.6-1.3)
[2024-07-05] MEDS: SODIUM CHLORIDE 0.9% 3ML FLUSH IVF SCH (14:25)
[2024-07-06] VITALS (21 sets, daily range): BP systolic 107–124; BP diastolic 55–76; PULSE 72–108; RESP 12–23; TEMP 36.55848–38.6142; O2SAT 98–100
[2024-07-06 05:50] LABS: CARBON DIOXIDE 31 mEq/L (21-32); CHLORIDE 106 mEq/L (98-107); POTASSIUM 3.7 mEq/L (3.5-5.1); SODIUM 142 mEq/L (136-145)
[2024-07-06 05:51] LABS: CALCIUM 9.2 mg/dL (8.7-10.4)
[2024-07-06 05:56] LABS: CREATININE 0.4 mg/dL (0.6-1.3); GLUCOSE 118 mg/dL (70-105); UREA NITROGEN BLOOD 11 mg/dL (9-23)
[2024-07-06 06:04] LABS: BASOPHILS % 1.1 % (0.0-2.0); EOSINOPHILS % 12.6 % (0.0-5.0); LYMPHOCYTES % 29.5 % (20.0-50.0); MEAN CORPUSCULAR HEMOGLOBIN 27.3 pg (28.0-32.0); MEAN CORPUSCULAR HGB CONC 32.3 g/dL (31.0-37.0); MEAN CORPUSCULAR VOLUME 84.4 fL (80.0-94.0); MONOCYTES % 10.3 % (2.0-8.0); NEUTROPHILS % 46.5 % (40.0-76.0); PLATELET 514 x1000/uL (130-400); RED BLOOD CELL COUNT 3.32 mill/uL (4.7-6.1); RED CELL DISTRIBUTION WIDTH 16.2 % (11.6-14.6); WHITE BLOOD COUNT 5.7 x1000/uL (4.5-11.0)
[2024-07-07] VITALS (24 sets, daily range): BP systolic 104–134; BP diastolic 51–87; PULSE 68–109; RESP 12–24; TEMP 36.6696–37.72524; O2SAT 98–100
[2024-07-07 13:15] LABS: BASOPHILS % 0.8 % (0.0-2.0); EOSINOPHILS % 11.9 % (0.0-5.0); HEMATOCRIT. 26.6 % (42.0-52.0); HEMOGLOBIN. 8.4 g/dL (14.0-18.0); LYMPHOCYTES % 29.5 % (20.0-50.0); MEAN CORPUSCULAR HEMOGLOBIN 26.6 pg (28.0-32.0); MEAN CORPUSCULAR HGB CONC 31.5 g/dL (31.0-37.0); MEAN CORPUSCULAR VOLUME 84.2 fL (80.0-94.0); MEAN PLATELET VOLUME 7.7 fl (7.4-10.4); MONOCYTES % 10.7 % (2.0-8.0); NEUTROPHILS % 47.1 % (40.0-76.0); PLATELET 490 x1000/uL (130-400); RED BLOOD CELL COUNT 3.16 mill/uL (4.7-6.1); RED CELL DISTRIBUTION WIDTH 16.5 % (11.6-14.6); WHITE BLOOD COUNT 6.3 x1000/uL (4.5-11.0)
[2024-07-07 13:20] LABS: CHLORIDE 108 mEq/L (98-107); POTASSIUM 3.7 mEq/L (3.5-5.1); SODIUM 144 mEq/L (136-145)
[2024-07-07 13:22] LABS: CALCIUM 9.1 mg/dL (8.7-10.4); CARBON DIOXIDE 30 mEq/L (21-32)
[2024-07-07 13:27] LABS: CREATININE 0.4 mg/dL (0.6-1.3); GLUCOSE 111 mg/dL (70-105); PROTHROMBIN TIME 11.4 sec (9.6-11.0); UREA NITROGEN BLOOD 12 mg/dL (9-23)
[2024-07-07 13:29] LABS: ALANINE AMINOTRANSFERASE 14 IU/L (10-49); ALBUMIN 3.1 g/dL (3.2-4.8); ASPARTATE AMINOTRANSFERASE 13 IU/L (<34); BILIRUBIN TOTAL 0.2 mg/dL (0.1-1.0); PHOSPHORUS 3.2 mg/dL (2.5-4.9); PROTEIN TOTAL 6.7 g/dL (6.0-8.3)
[2024-07-07 13:34] LABS: BILIRUBIN DIRECT < 0.1 mg/dL (<=3.0)
[2024-07-07] MEDS: LORAZEPAM 2MG/ML INJ IV PRN (22:48)
[2024-07-08] VITALS (24 sets, daily range): BP systolic 101–138; BP diastolic 63–89; PULSE 74–107; RESP 12–18; TEMP 36.55848–37.28076; O2SAT 98–100
[2024-07-08 05:45] LABS: BASOPHILS % 0.6 % (0.0-2.0); EOSINOPHILS % 12.4 % (0.0-5.0); HEMATOCRIT. 29.3 % (42.0-52.0); HEMOGLOBIN. 9.5 g/dL (14.0-18.0); LYMPHOCYTES % 24.7 % (20.0-50.0); MEAN CORPUSCULAR HEMOGLOBIN 27.2 pg (28.0-32.0); MEAN CORPUSCULAR HGB CONC 32.4 g/dL (31.0-37.0); MEAN CORPUSCULAR VOLUME 83.9 fL (80.0-94.0); MEAN PLATELET VOLUME 7.8 fl (7.4-10.4); MONOCYTES % 9.9 % (2.0-8.0); NEUTROPHILS % 52.4 % (40.0-76.0); PLATELET 499 x1000/uL (130-400); RED BLOOD CELL COUNT 3.49 mill/uL (4.7-6.1); RED CELL DISTRIBUTION WIDTH 16.5 % (11.6-14.6); WHITE BLOOD COUNT 5.9 x1000/uL (4.5-11.0)
[2024-07-08 05:59] LABS: CALCIUM 9.2 mg/dL (8.7-10.4); CARBON DIOXIDE 30 mEq/L (21-32); CHLORIDE 108 mEq/L (98-107); POTASSIUM 3.6 mEq/L (3.5-5.1); SODIUM 145 mEq/L (136-145)
[2024-07-08 06:05] LABS: CREATININE 0.3 mg/dL (0.6-1.3); GLUCOSE 143 mg/dL (70-105); UREA NITROGEN BLOOD 14 mg/dL (9-23)
[2024-07-09] VITALS (22 sets, daily range): BP systolic 115–137; BP diastolic 71–86; PULSE 73–109; RESP 12–21; TEMP 36.33624–37.00296; O2SAT 97–100
[2024-07-09 05:22] LABS: CHLORIDE 106 mEq/L (98-107); POTASSIUM 3.8 mEq/L (3.5-5.1); SODIUM 139 mEq/L (136-145)
[2024-07-09 05:23] LABS: BASOPHILS % 0.5 % (0.0-2.0); CALCIUM 8.6 mg/dL (8.7-10.4); CARBON DIOXIDE 28 mEq/L (21-32); EOSINOPHILS % 8.9 % (0.0-5.0); HEMATOCRIT. 27.9 % (42.0-52.0); HEMOGLOBIN. 8.8 g/dL (14.0-18.0); MEAN CORPUSCULAR HEMOGLOBIN 26.8 pg (28.0-32.0); MEAN CORPUSCULAR HGB CONC 31.5 g/dL (31.0-37.0); MEAN CORPUSCULAR VOLUME 84.9 fL (80.0-94.0); MEAN PLATELET VOLUME 7.8 fl (7.4-10.4); NEUTROPHILS % 64.6 % (40.0-76.0); PLATELET 508 x1000/uL (130-400); RED BLOOD CELL COUNT 3.28 mill/uL (4.7-6.1); RED CELL DISTRIBUTION WIDTH 15.9 % (11.6-14.6); WHITE BLOOD COUNT 7.4 x1000/uL (4.5-11.0)
[2024-07-09 05:28] LABS: CREATININE 0.3 mg/dL (0.6-1.3); GLUCOSE 130 mg/dL (70-105); UREA NITROGEN BLOOD 12 mg/dL (9-23)
[2024-07-09] MEDS: MEROPENEM 1G/100ML 100 ML IV SCH (06:56)
[2024-07-10] VITALS (25 sets, daily range): BP systolic 109–131; BP diastolic 70–89; PULSE 74–103; RESP 12–16; TEMP 36.28068–37.33632; O2SAT 98–100
[2024-07-10 06:33] LABS: BASOPHILS % 0.7 % (0.0-2.0); EOSINOPHILS % 8.7 % (0.0-5.0); HEMATOCRIT. 27.2 % (42.0-52.0); HEMOGLOBIN. 8.6 g/dL (14.0-18.0); MEAN CORPUSCULAR HEMOGLOBIN 26.7 pg (28.0-32.0); MEAN CORPUSCULAR HGB CONC 31.7 g/dL (31.0-37.0); MEAN CORPUSCULAR VOLUME 84.4 fL (80.0-94.0); MEAN PLATELET VOLUME 7.8 fl (7.4-10.4); MONOCYTES % 8.8 % (2.0-8.0); NEUTROPHILS % 61.8 % (40.0-76.0); PLATELET 512 x1000/uL (130-400); RED BLOOD CELL COUNT 3.22 mill/uL (4.7-6.1); RED CELL DISTRIBUTION WIDTH 16.2 % (11.6-14.6); WHITE BLOOD COUNT 6.5 x1000/uL (4.5-11.0)
[2024-07-10 06:40] LABS: CARBON DIOXIDE 29 mEq/L (21-32); CHLORIDE 107 mEq/L (98-107); POTASSIUM 3.6 mEq/L (3.5-5.1); SODIUM 141 mEq/L (136-145)
[2024-07-10 06:42] LABS: CALCIUM 8.7 mg/dL (8.7-10.4)
[2024-07-10 06:46] LABS: CREATININE 0.3 mg/dL (0.6-1.3); GLUCOSE 128 mg/dL (70-105); UREA NITROGEN BLOOD 12 mg/dL (9-23)
[2024-07-10] MEDS ORDERED: SODIUM BICARBONATE 4% 2.4MEQ/5ML VIAL IV ONE (11:11)
[2024-07-10] MEDS ORDERED: LIDOCAINE HCL 1% 10 MG/ML 10ML VIAL ONE (11:12)
[2024-07-11] VITALS (18 sets, daily range): BP systolic 111–144; BP diastolic 63–79; PULSE 73–94; RESP 12–17; TEMP 36.3918–37.503; O2SAT 73–100
== END 2024-07-11 18:26 | DRG 720 ==
LOC: ER 14:08 → CVICU 16:41 → EDBEDREQ 16:55 → EDBEDREQTM 16:55 → 5EST 05-27 13:20
PROVIDERS: ADMIT Internal Medicine; ATTEND Internal Medicine
PROC: 5A1955Z Respiratory Ventilation, Greater than 96 Consecutive Hours (ICD-10-PCS; principal; 2024-05-22)
PROC: 02HV33Z Insertion of Infusion Device into Superior Vena Cava, Percutaneous Approach (ICD-10-PCS; 2024-05-22)
PROC: B548ZZA Ultrasonography of Superior Vena Cava, Guidance (ICD-10-PCS; 2024-05-22)
PROC: 0DP6XUZ Removal of Feeding Device from Stomach, External Approach (ICD-10-PCS; 2024-05-22)
PROC: 0D9680Z Drainage of Stomach with Drainage Device, Via Natural or Artificial Opening Endoscopic (ICD-10-PCS; 2024-05-23)
PROC: 30243N1 Transfusion of Nonautologous Red Blood Cells into Central Vein, Percutaneous Approach (ICD-10-PCS; 2024-05-24)
PROC: 02HV33Z Insertion of Infusion Device into Superior Vena Cava, Percutaneous Approach (ICD-10-PCS; 2024-06-11)
PROC: B548ZZA Ultrasonography of Superior Vena Cava, Guidance (ICD-10-PCS; 2024-06-11)
PROC: 0DH63UZ Insertion of Feeding Device into Stomach, Percutaneous Approach (ICD-10-PCS; 2024-06-17)
PROC: 0W9F30Z Drainage of Abdominal Wall with Drainage Device, Percutaneous Approach (ICD-10-PCS; 2024-06-24)
DX: A41.9 Sepsis, unspecified organism (principal); J96.21 Acute and chronic respiratory failure with hypoxia; R65.21 Severe sepsis with septic shock; G92.8 Other toxic encephalopathy; G40.919 Epilepsy, unspecified, intractable, without status epilepticus; J15.1 Pneumonia due to Pseudomonas; E46 Unspecified protein-calorie malnutrition; K94.22 Gastrostomy infection; L89.154 Pressure ulcer of sacral region, stage 4; I47.20 Ventricular tachycardia, unspecified; I47.29 Other ventricular tachycardia; E87.6 Hypokalemia; E87.0 Hyperosmolality and hypernatremia; L03.311 Cellulitis of abdominal wall; L02.211 Cutaneous abscess of abdominal wall; I48.0 Paroxysmal atrial fibrillation; E83.42 Hypomagnesemia; E78.00 Pure hypercholesterolemia, unspecified; E11.52 Type 2 diabetes mellitus with diabetic peripheral angiopathy with gangrene; E11.65 Type 2 diabetes mellitus with hyperglycemia; D50.9 Iron deficiency anemia, unspecified; E11.649 Type 2 diabetes mellitus with hypoglycemia without coma; Z68.25 Body mass index [BMI] 25.0-25.9, adult; E87.4 Mixed disorder of acid-base balance; I10 Essential (primary) hypertension; I47.10 Supraventricular tachycardia, unspecified; Y83.8 Other surgical procedures as the cause of abnormal reaction of the patient, or of later complication, without mention of misadventure at the time of the procedure; Y92.89 Other specified places as the place of occurrence of the external cause; Y95 Nosocomial condition; R13.12 Dysphagia, oropharyngeal phase; Z87.01 Personal history of pneumonia (recurrent); Z89.611 Acquired absence of right leg above knee; Z99.11 Dependence on respirator [ventilator] status; D63.8 Anemia in other chronic diseases classified elsewhere; S01.301A Unspecified open wound of right ear, initial encounter; X58.XXXA Exposure to other specified factors, initial encounter; Y93.89 Activity, other specified; Y99.8 Other external cause status
CPT/HCPCS: 10030; 36415; 36573; 36600; 71045; 71260; 74018; 74176; 74177; 76705; 76857; 76870; 80048; 80053; 80061; 80076; 80162; 80202; 80305; 81003; 82040; 82270; 82375; 82465; 82607; 82728; 82746; 82805; 82962; 83036; 83540; 83550; 83605; 83735; 84075; 84100; 84132; 84134; 84145; 84439; 84443; 84450; 84460; 84478; 84480; 85014; 85018; 85025; 85027; 85044; 86850; 86900; 86920; 87070; 87077; 87186; 93005; 93306; 93976; 94003; 94640; 99291; A6261; C1725; C1729; C1769; C1893; J0360; J0690; J1160; J1650; J1815; J1953; J2060; J2185; J2470; J2543; J2765; J3370; J3475; J3480; J3490; J7030; J7040; J7060; J7070; J7120; L8514; P9016; Q9963; Q9967